=== PATIENT | male | born 1990 | race Caucasian/White ===

== ENCOUNTER 2020-10-16 19:17 | Emergency (ER) | payer OTHER, SELFPAY ==
--- NOTE | 2020-10-16 19:30 | ECG_ITS ---
Test Reason : SYNCOPE Blood Pressure : / mmHG Vent. Rate : 097 BPM Atrial Rate : 097 BPM P-R Int : 144 ms QRS Dur : 088 ms QT Int : 354 ms P-R-T Axes : 041 047 025 degrees QTc Int : 449 ms Sinus rhythm with marked sinus arrhythmia Otherwise normal ECG When compared with ECG of 26-MAR-2020 16:34, No significant change was found Referred By: Leo Stout Electronically Signed By:Brock Beltran
[2020-10-16 19:33] VITALS: BP 145/82; PULSE 140; RESP 18; TEMP 36.1; O2SAT 99; BMI 36.5
--- NOTE | 2020-10-16 19:37 | PC.NURSE ---
pt upon arrival requesting to leave AMA. provider Leo VOSS at bedside with this screen writer RN to explain risks for leaving ama including possible , PE other dangerous risks which could cause his syncopal episode. Pt understands risks and is willing to stay at this time but is still wanting to leave but cooperative at this time.
--- NOTE | 2020-10-16 19:40 | ED_ITS ---
HPI - Syncope General Chief Complaint: Syncope Stated Complaint: SYNCOPAL EPISODE Time Seen by Provider: 10/16/20 19:30 Source: patient Mode of arrival: EMS Limitations: no limitations History of Present Illness HPI narrative: Patient presents to ED for syncopal episode. Patient was informed he passed out at work. Patient was unaware he passed out. Patient presently states he does feel thirsty and would like to leave against medical advice. Patient denies ever having chest pain, headache, shortness of breath, abdominal pain, or dizziness before passing out. Related Data Allergies Allergy/AdvReac Type Severity Reaction Status Date / Time No Known Allergies Allergy Unverified 07/18/20 18:48 [No Known Allergies*] Review of Systems Review of Systems: Yes all other systems are reviewed and are negative Constitutional: Constitutional: Reports as per HPI and Reports no additional constitutional complaints Eyes: Eyes: Reports as per HPI and Reports no additional eye complaints ENT: Reports system reviewed and no additional complaints, except as documented and Reports as per HPI Cardiovascular: Cardiovascular: Reports as per HPI and Reports no additional cardiovascular complaints Respiratory: Respiratory: Reports as per HPI and Reports no additional respiratory complaints Gastrointestinal: Gastrointestinal: Reports as per HPI and Reports no additional gastrointestinal complaints Genitourinary: Genitourinary: Reports no additional male genitourinary complaints and Reports as per HPI Musculoskeletal: Musculoskeletal: Reports no additional musculoskeletal complaints and Reports as per HPI Neurologic: Reports system reviewed and no additional complaints, except as documented and Reports as per HPI Psychiatric: Psychiatric: Reports no additional psychiatric complaints and Reports as per HPI PMF Past Medical History Medical History Asthma No known health problems Social History Social History Advance Directives: No Advance Directives Information Provided: Yes Physical Exam Vital Signs: Vital Signs: Last Vital Signs Temp 96.9 F 10/16/20 19:33 Pulse 140 H 10/16/20 19:33 Resp 18 10/16/20 19:33 BP 145/82 H 10/16/20 19:33 Pulse Ox 99 10/16/20 19:33 Body Mass Index 36.5 Const: Other: Diaphoretic General: cooperative, healthy appearing, comfortable, no acute distress, well developed, alert, awake, Physically active and acute distress Orientation/consciousness: patient oriented x3 HENMT: Head: Yes normal to inspection, Yes No palpable skull fracture present, Yes normocephalic, No atraumatic, No Acrocyanosis present, No Hernandez's sign, No contusion, No cranial bruits, No hematoma, No laceration, No occipital foramen tenderness, No palpable skull fracture, No raccoon eyes, No scalp lesion, No scalp tenderness, No Temporal artery tenderness present, No periorbital ecchymosis and No other Eyes: General: appearance normal, both eyes and all related structures Neck: Neck: Yes normal visual inspection, Yes full ROM, Yes no lymphadenopa thy, Yes no meningeal signs, Yes trachea midline, Yes supple and No tender Chest: Chest palpation & inspection: normal inspection of the chest and normal palpation of entire chest wall Resp: Effort & Inspection: normal respiratory effort and able to speak in complete sentences Auscultation: clear to auscultation bilaterally Cardio: Jugular venous distension: no JVD Heart sounds: S1 normal heart sound present and S2 normal heart sound present GI: Inspection: Yes normal to inspection and No abdominal wall ecchymosis Palpation (GI): Soft to palpation, not firm, nontender, no guarding and not rigid : General: No CVA tenderness and Yes no CVA tenderness Back/Spine/Pelvis: Back: no CVA tenderness, No CVA tenderness and No back tenderness Skin: General skin exam: no rashes or lesions noted Neuro: General: patient oriented x3, gait normal, tone normal, no meningeal signs and CN's II-XI intact bilaterally Cranial nerves: Yes CN's II-XII intact bilaterally Extrem: General: Yes normal to inspection Psych: Appearance: grossly normal, well kempt and not disheveled Course Course Course Narrative: Patient presently is refusing medical evaluation. Patient explained risk of , heart attack, PE, dehydration, arrhythmia of the heart, electrolyte deficiency, disability, or altered lifestyle if there is not any evaluation. Patient states presently he will only allow himself to drink water in the ED and have EKG done. Labs ordered in case patient changes mind. Patient wants to sign out against medical advice. Reevaluation(s) Reevaluation #1: Patient signed out against medical advice without any lab evaluation. MDM - Syncope MDM Narrative Medical decision making narrative: Syncope ECG Data Interpretation: Sinus rhythm with marked arrhythmia. Ventricular rate 97. Pr interval 144. Number EKG. Negative STEMI Discharge Plan Discharge Clinical Impression: Syncope Patient Disposition: Left Against Medical Advice Instructions: Syncope (ED) Additional Instructions: Return to ED immediately for any chest pain, shortness of breath, dizziness, headache, abdominal pain, weakness, coughing up blood, fever, chills, or any other concerning symptoms. Please follow-up with the PCP Stand Alone Forms: Against Medical Advice Interventions: ED Discharge Assessment Last Done: 10/16/20 19:58 Discharge Date/Time: 10/16/20 20:01 Print Language: Malaysian
== END 2020-10-16 20:01 | disposition left against medical advice (07) ==
PROVIDERS: Emergency Provider Emergency Medicine
DX: R55 Syncope and collapse (principal)
CPT/HCPCS: 93005; 99283

== ENCOUNTER 2021-05-06 04:36 | Inpatient (IN) | payer OTHER, SELFPAY ==
[2021-05-06] VITALS (12 sets, daily range): BP systolic 114–146; BP diastolic 87–106; PULSE 89–146; RESP 15–24; TEMP 36.3–36.8; O2SAT 96–98; BMI 31.8
--- NOTE | 2021-05-06 04:45 | ECG_ITS ---
Test Reason : SEIZURE Blood Pressure : / mmHG Vent. Rate : 114 BPM Atrial Rate : 114 BPM P-R Int : 136 ms QRS Dur : 088 ms QT Int : 340 ms P-R-T Axes : 038 021 014 degrees QTc Int : 468 ms Sinus tachycardia Otherwise normal ECG When compared with ECG of 16-OCT-2020 19:44, No significant change was found Referred By: Tiara Paul Electronically Signed By:IVANA BEAN
[2021-05-06 05:07] LABS: Basophils Percent Auto 0.4 % (0-2); Eosinophils Percent Auto 0.2 % (0-4); Imm Gran Abs Auto 0.02 X10*3/uL (0.00-0.03); Imm Gran Pct Auto 0.4 % (0.0-0.4); PLT CLUMP 1; SCAN SMEAR FLAG 1
[2021-05-06 05:09] LABS: Hematocrit 42.3 % (42-52); Hemoglobin 15.1 g/dl (14.0-18.0); Lymphocytes Absolute Auto 0.7 X10*3/uL (1.2-4.9); Lymphocytes Percent Auto 15.2 % (20-40); Mean Corpuscular HGB Conc 35.7 g/dl (31.0-36.0); Mean Corpuscular Hemoglobin 31.9 pg (27.0-33.0); Mean Corpuscular Volume 89.4 fL (80-98); Mean Platelet Volume 9.7 fL (9.4-12.4); Monocytes Absolute Auto 0.3 X10*3/uL (0.1-1.2); Monocytes Percent Auto 6.8 % (2-11); Neutrophils Absolute Auto 3.8 X10*3/uL (2.0-8.3); Platelet Count 126 X10*3/uL (160-400); Red Blood Count 4.73 X10*6/uL (4.60-5.80); White Blood Count 4.9 X10*3/uL (4.8-10.8)
[2021-05-06] MEDS: 0.9 % Sodium Chloride 2,000 ML 999 ML IV (05:09)
[2021-05-06 05:10] LABS: MANUAL DIFF FLAG NO
[2021-05-06] MEDS: LORazepam 2 MG/ML VIAL IVPUSH (05:10)
[2021-05-06 05:13] LABS: Prothrombin Time 11.9 SEC (9.9-13.0)
--- NOTE | 2021-05-06 05:13 | PC.NURSE ---
pt states he drinks vodka and rum, he completes a 1.75 l bottle of one of them in 3 days. pt has had seizures in the past and related to drinking withdrawls all 3 times.
[2021-05-06 05:29] LABS: Ethanol < 10 mg/dL
[2021-05-06 05:34] LABS: Alanine Aminotransferase 48 U/L (0-40); Albumin Level 4.3 g/dL (3.5-5.0); Alkaline Phosphatase 104 U/L (39-117); Anion Gap 24 (12-20); Aspartate Amino Transferase 80 U/L (5-37); Bilirubin Total 2.3 mg/dL (0.0-1.0); Blood Urea Nitrogen 8 mg/dL (9-16); Calcium 9.3 mg/dL (8.4-10.2); Carbon Dioxide 23 mmol/L (22-29); Chloride 94 mmol/L (96-108); Creatinine Clr Calc Pharmacy 94.4; Estimated Glomerular Filt Rate > 60; Glucose Random 198 mg/dL (60-115); Potassium 3.1 mmol/L (3.3-5.1); Sodium 138 mmol/L (135-145); Total Protein 6.8 g/dL (6.5-8.0)
[2021-05-06 05:37] LABS: Magnesium 1.2 mg/dL (1.6-2.6)
--- NOTE | 2021-05-06 05:39 | ED.ALCOHOL ---
HPI - Alcohol General Chief Complaint: Seizure Stated Complaint: seizure 05/06 Time Seen by Provider: 05/06/21 04:45 Source: patient Mode of arrival: ambulatory History of Present Illness HPI narrative: 31-year-old male with significant past medical history of alcohol dependency and abuse, consisting of consuming half - 1 L hard alcohol a day. Patient states that he stopped drinking 2 days ago. In addition, he states he does have a diagnosis of seizure disorder since last summer for which he takes Depakote, but endorses that this is intermittent in nature. Otherwise, he denies any acute complaints and specifically denies fevers, chills, shortness of breath, chest pain / palpitations, abdominal discomfort or urinary symptoms. Related Data Allergies Allergy/AdvReac Type Severity Reaction Status Date / Time No Known Allergies Allergy Unverified 07/18/20 18:48 [No Known Allergies*] Review of Systems Review of Systems: Pertinent positives and negatives as stated in HPI 10 point review of systems is otherwise negative. PMFSH Past Medical History Source: nursing notes reviewed Medical History Asthma No known health problems Social History Social History Alcohol intake: current Alcohol intake frequency: 3 or more drinks per day Alcohol type: hard liquor Smoked in Last 30 Days: No Use of substances other than those prescribed or required for medical reasons: Yes Substance Use Type: Marijuana Substance Use Frequency: Occasionally Last Used Substance: Days (ago) Any prior treatment program specific to substance use: No Advance Directives: No Physical Exam Vital Signs: Vital Signs: Last Vital Signs Temp 97.8 F 05/06/21 04:48 Pulse 120 H 05/06/21 04:48 Resp 24 H 05/06/21 04:48 BP 124/90 H 05/06/21 04:48 Pulse Ox 96 05/06/21 04:48 Body Mass Index 31.8 VITAL SIGNS: Reviewed. GENERAL: Well developed, well nourished, in no acute distress. HEAD: Normocephalic/atraumatic EYES: PERRLA, EOMI intact without pain, no nystagmus EARS: Ext canals without abnormality OROPHARYNX: no oral lesions noted, posterior pharynx clear LUNGS: Normal breath sounds. No adventitious sounds or accessory muscle use. SpO2<96> CARDIOVASCULAR: Regular rate and rhythm without noted murmurs ABDOMEN: Soft, non-tender, non-distended with bowel sounds. SKIN: Inspection of the skin reveals no rashes NEUROLOGIC: Alert and oriented x 4. Strength and sensation to light touch were grossly intact x 4 , tremulous. Course Course Course Narrative: 31-year-old male with history and clinical presentation suggestive of alcohol withdrawal seizures, although somewhat confounding with poor compliance with seizure medications as well. Patient provided with IV Ativan on arrival after obtaining CIWA scale-11. On review of laboratory investigations patient found to have some electrolyte derangements which were corrected and this case was discussed with inpatient hospitalist who is agreeable for admission for alcohol detox and will obtain Depakote levels as additional contributing factor. MDM - Alcohol Lab Data Result diagrams: 05/06/21 05:03 05/06/21 05:03 Labs: Lab Results 05/06/21 05/06/21 05/06/21 Range/Units 05:02 05:03 05:03 WBC 4.9 (4.8-10.8) X10*3/uL RBC 4.73 (4.60-5.80) X10*6/uL Hgb 15.1 (14.0-18.0) g/dl Hct 42.3 (42-52) % MCV 89.4 (80-98) fL MCH 31.9 (27.0-33.0) pg MCHC 35.7 (31.0-36.0) g/dl RDW 12.0 (11.0-16.0) % Plt Count 126 L (160-400) X10*3/uL MPV 9.7 (9.4-12.4) fL Immature Gran % (Auto) 0.4 (0.0-0.4) % Neut % (Auto) 77.0 H (45-73) % Lymph % (Auto) 15.2 L (20-40) % [place] % (Auto) 6.8 (2-11) % Eos % (Auto) 0.2 (0-4) % Baso % (Auto) 0.4 (0-2) % Lymph # (Auto) 0.7 L (1.2-4.9) X10*3/uL [place] # (Auto) 0.3 (0.1-1.2) X10*3/uL Eos # (Auto) 0.0 (0.0-0.4) X10*3/uL Baso # (Auto) 0.0 (0.0-0.2) X10*3/uL Abs Immat Gran (auto) 0.02 (0.00-0.03) X10*3/uL Absolute Neuts (auto) 3.8 (2.0-8.3) X10*3/uL Absolute Nucleated RBC 0.000 (0.0-0.012) X10*3/uL Nucleated RBC % (auto) 0.0 (0.0-0.2) /100WBC PT (9.9-13.0) SEC INR (0.9-1.1) Sodium 138 (135-145) mmol/L Potassium 3.1 L (3.3-5.1) mmol/L Chloride 94 L (96-108) mmol/L Carbon Dioxide 23 (22-29) mmol/L Anion Gap 24 H (12-20) BUN 8 L (9-16) mg/dL Creatinine 1.28 (0.5-1.4) mg/dL Estim Creat Clear Calc 94.4 Estimated GFR > 60 Random Glucose 198 H (60-115) mg/dL Calcium 9.3 (8.4-10.2) mg/dL Magnesium (1.6-2.6) mg/dL Total Bilirubin 2.3 H (0.0-1.0) mg/dL AST 80 H (5-37) U/L ALT 48 H (0-40) U/L Alkaline Phosphatase 104 (39-117) U/L Total Protein 6.8 (6.5-8.0) g/dL Albumin 4.3 (3.5-5.0) g/dL Urine Color Urine Appearance Urine pH (5.0-8.0) Ur Specific [place] (1.005-1.025) Urine Protein (NEG-TRACE) MG/DL Urine Glucose (UA) (NEG) MG/DL Urine Ketones (NEG) MG/DL Urine Blood (NEG) Urine Nitrite (NEG) Ur Leukocyte Esterase (NEG) Urine RBC (0) /HPF Urine WBC (0-4) /HPF Ur Squamous Epith Cells /LPF Urine Bacteria /LPF Hyaline Casts /LPF Urine Mucus /LPF Ethyl Alcohol < 10 mg/dL 05/06/21 05/06/21 05/06/21 Range/Units 05:03 05:03 05:45 WBC (4.8-10.8) X10*3/uL RBC (4.60-5.80) X10*6/uL Hgb (14.0-18.0) g/dl Hct (42-52) % MCV (80-98) fL MCH (27.0-33.0) pg MCHC (31.0-36.0) g/dl RDW (11.0-16.0) % Plt Count (160-400) X10*3/uL MPV (9.4-12.4) fL Immature Gran % (Auto) (0.0-0.4) % Neut % (Auto) (45-73) % Lymph % (Auto) (20-40) % [place] % (Auto) (2-11) % Eos % (Auto) (0-4) % Baso % (Auto) (0-2) % Lymph # (Auto) (1.2-4.9) X10*3/uL [place] # (Auto) (0.1-1.2) X10*3/uL Eos # (Auto) (0.0-0.4) X10*3/uL Baso # (Auto) (0.0-0.2) X10*3/uL Abs Immat Gran (auto) (0.00-0.03) X10*3/uL Absolute Neuts (auto) (2.0-8.3) X10*3/uL Absolute Nucleated RBC (0.0-0.012) X10*3/uL Nucleated RBC % (auto) (0.0-0.2) /100WBC PT 11.9 (9.9-13.0) SEC INR 1.0 (0.9-1.1) Sodium (135-145) mmol/L Potassium (3.3-5.1) mmol/L Chloride (96-108) mmol/L Carbon Dioxide (22-29) mmol/L Anion Gap (12-20) BUN (9-16) mg/dL Creatinine (0.5-1.4) mg/dL Estim Creat Clear Calc Estimated GFR Random Glucose (60-115) mg/dL Calcium (8.4-10.2) mg/dL Magnesium 1.2 L* (1.6-2.6) mg/dL Total Bilirubin (0.0-1.0) mg/dL AST (5-37) U/L ALT (0-40) U/L Alkaline Phosphatase (39-117) U/L Total Protein (6.5-8.0) g/dL Albumin (3.5-5.0) g/dL Urine Color DARK YELLOW Urine Appearance CLEAR Urine pH 7.5 (5.0-8.0) Ur Specific [place] 1.015 (1.005-1.025) Urine Protein 1+ H (NEG-TRACE) MG/DL Urine Glucose (UA) NEG (NEG) MG/DL Urine Ketones 15 (NEG) MG/DL Urine Blood NEG (NEG) Urine Nitrite NEG (NEG) Ur Leukocyte Esterase NEG (NEG) Urine RBC 0-2 (0) /HPF Urine WBC 0-2 (0-4) /HPF Ur Squamous Epith Cells NONE /LPF Urine Bacteria NONE /LPF Hyaline Casts 15-29 /LPF Urine Mucus 1+ /LPF Ethyl Alcohol mg/dL Discharge Plan Discharge Clinical Impression: Alcohol withdrawal, Seizure Patient Disposition: Admitted As Inpatient
[2021-05-06 05:50] LABS: Glucose Urine UA NEG (NEG); Leukocyte Esterase Urine NEG (NEG); Nitrite Urine NEG (NEG); PH 7.5 (5.0-8.0); Specific Gravity - Urine 1.015 (1.005-1.025); Urine Blood NEG (NEG); Urine Ketones 15 MG/DL (NEG); Urine Protein 1+ MG/DL (NEG-TRACE)
[2021-05-06 05:58] LABS: Appearance Urine CLEAR; Color Urine DARK YELLOW
[2021-05-06 06:05] LABS: RBC Urine 0-2 /HPF (0); WBC Urine 0-2 /HPF (0-4)
[2021-05-06] MEDS: Magnesium Sulfate/H2O 2 GM/50 ML PIGGYBACK IV (06:05)
[2021-05-06 06:06] LABS: Mucus Urine 1+ /LPF
[2021-05-06 06:24] LABS: Amphetamine Screen Urine Not Detected (Not Detect); Barbiturates, Urine Not Detected (Not Detect); Benzodiazepines Screen Urine Not Detected (Not Detect); Cannabinoid Screen Urine Not Detected (Not Detect); Cocaine Screen Urine Not Detected (Not Detect); Opiate Screen Urine Not Detected (Not Detect); Phencyclidine Screen Urine Not Detected (Not Detect)
[2021-05-06] MEDS: Potassium Chloride/H20 10 MEQ/100 ML PIGGYBACK 100 MEQ IV ×2 (06:37→07:50)
[2021-05-06 06:50] LABS: Valproate < 2.0 mcg/mL (50.0-100.0)
[2021-05-06 07:01] LABS: COVID-19 Test Negative (Negative)
--- NOTE | 2021-05-06 07:13 | PC.NURSE ---
Pt is lying in bed alert and oriented. Family is at bedside. Peripheral iv site wnl.
--- NOTE | 2021-05-06 08:54 | PC.NURSE ---
Pt resting quietly in bed in no distress. Pt requesting something for breakfast. Pt given ice chips at this time.
--- NOTE | 2021-05-06 10:00 | PC.NURSE ---
Patient has tolerated ice chips with no vomiting or complaints of nausea. Gingerale given to drink
--- NOTE | 2021-05-06 11:22 | PC.NURSE ---
Patient tolerated gingerale well with no nausea or vomiting. Pt given a sandwich to eat.
--- NOTE | 2021-05-06 11:58 | PC.NURSE ---
Patient tolerated sandwich well. Pt remains alert, oriented and in no distress.
--- NOTE | 2021-05-06 12:02 | PM.IMHP ---
History of Present Illness Date of Service: 05/06/21 Chief Complaint: Seizure 31 year old man presenting to the ED after a seizure. He was up this morning and felt funny and knew he was going to have a seizure. His sister walked him to the room and he layed on the bed. His seizures are usually tonic clonic in nature however he reports that he has not taken his depakote in one week and tends to not be regular in taking his medication. He also drinks a liter of liquor at least 3-4 times a week with last drink 2 days ago. He reports poor appetite over the last few days. He denied chest pain, shortness of breath, trauma from seizure. In the ED,he was noted to have a number of electrolyte abnormalities including mag of 1.2, potassium of 3.1, tachycardia. In the ED he was given ativan, potassium, magnesium and was started on phenobarbitol. Review of Systems Review of Systems: Denies any recent fever chills or decrease in appetite respiratory denies any shortness of breath coverage production cardiovascular denied chest pain gastrointestinal denies any dysphagia abdominal pain nausea vomiting or diarrhea genitourinary denies any dysuria frequency or hematuria musculoskeletal denies any joint pain or swelling neuropsych denies any weakness or seizures all other systems reviewed are negative [facility] Medical History Asthma No known health problems Pertinent family history: no cardiac disease Social History Household Members: Family Household Members Other:: mother and step father Housing: House Do you presently have visiting nurse or other home services: No Alcohol intake: current Alcohol intake frequency: 3 or more drinks per day Alcohol type: hard liquor Patient Tobacco Use Status: Never used Tobacco Smoked in Last 30 Days: No Use of substances other than those prescribed or required for medical reasons: No Substance Use Type: Marijuana Substance Use Frequency: Occasionally Last Used Substance: Days (ago) Any prior treatment program specific to substance use: No Have you been hit, kicked, punched, or otherwise hurt by someone within the past year? If so, by whom?: No Do you feel safe in your current relationship?: No Is there a partner from a previous relationship who is making you feel unsafe now?: No Are you made to feel afraid or neglected: No Advance Directives: No Do you have thoughts of harming others: None Do you have a plan to hurt others: No Plan Recently lost weight without trying: Yes How much weight loss: 14-23 pounds Eating poorly because of decreased appetite: No Nutrition screen score: 4 Nutrition Risks: No Nutritional Risk Poor oral hygiene: No Meds Allergies Allergy/AdvReac Type Severity Reaction Status Date / Time No Known Allergies Allergy Unverified 07/18/20 18:48 [No Known Allergies*] Active Medications: Current Medications Generic Name Dose Route Start Last Admin Trade Name Freq PRN Reason Stop Dose Admin Acetaminophen 650 mg 05/06/21 11:58 Acetaminophen 325 Mg Tablet PO Q6H PRN Pain, Mild (Pain Scale 1-3) Pharmacy Consult 1 each 05/06/21 11:59 Consult Rx Etoh Phenob Dosing MISCELLANE 05/06/21 12:00 ONCE ONE Protocol Sodium Chloride 3 ml 05/06/21 16:00 0.9 % Sodium Chloride Flush 3 Ml Syringe [facility] [place] Home Medications Medication Instructions Recorded Confirmed Last Taken Type buspirone 1 tab PO DAILY@0630 05/06/21 05/06/21 1 Week Ago History ~04/29/21 1 divalproex 1 tab PO DAILY 05/06/21 05/06/21 Unknown History escitalopram oxalate 1 tab PO DAILY 05/06/21 05/06/21 1 Week Ago History ~04/29/21 1 Physical Exam Vital Signs and Narrative: Vital Signs: Last Vital Signs Temp 98.0 F 05/06/21 08:22 Pulse 111 H 05/06/21 11:00 Resp 18 05/06/21 11:00 BP 146/106 H 05/06/21 11:00 Pulse Ox 97 05/06/21 11:00 Body Mass Index 31.8 Results Labs CBC and Chem 7: 05/06/21 05:03 05/06/21 05:03 Labs: Laboratory Results - last 24 hr 05/06/21 05/06/21 05/06/21 05:02 05:03 05:03 MCV 89.4 MCH 31.9 MCHC 35.7 RDW 12.0 Plt Count 126 L MPV 9.7 Immature Gran % (Auto) 0.4 Neut % (Auto) 77.0 H Lymph % (Auto) 15.2 L [place] % (Auto) 6.8 Eos % (Auto) 0.2 Baso % (Auto) 0.4 Lymph # (Auto) 0.7 L [place] # (Auto) 0.3 Eos # (Auto) 0.0 Baso # (Auto) 0.0 Abs Immat Gran (auto) 0.02 Absolute Neuts (auto) 3.8 Absolute Nucleated RBC 0.000 Nucleated RBC % (auto) 0.0 PT INR Anion Gap 24 H Estim Creat Clear Calc 94.4 Estimated GFR > 60 Random Glucose 198 H Calcium 9.3 Magnesium Total Bilirubin 2.3 H AST 80 H ALT 48 H Alkaline Phosphatase 104 Total Protein 6.8 Albumin 4.3 Urine Color Urine Appearance Urine pH Ur Specific [place] Urine Protein Urine Glucose (UA) Urine Ketones Urine Blood Urine Nitrite Ur Leukocyte Esterase Urine RBC Urine WBC Ur Squamous Epith Cells Urine Bacteria Hyaline Casts Urine Mucus Urine Opiates Screen Ur Barbiturates Screen Valproic Acid Ur Phencyclidine Scrn Ur Amphetamines Screen U Benzodiazepines Scrn Urine Cocaine Screen U Marijuana (THC) Screen Ethyl Alcohol < 10 COVID-19 (CELE) COVID-19 [employer] Com 05/06/21 05/06/21 05/06/21 05:03 05:03 05:45 MCV MCH MCHC RDW Plt Count MPV Immature Gran % (Auto) Neut % (Auto) Lymph % (Auto) [place] % (Auto) Eos % (Auto) Baso % (Auto) Lymph # (Auto) [place] # (Auto) Eos # (Auto) Baso # (Auto) Abs Immat Gran (auto) Absolute Neuts (auto) Absolute Nucleated RBC Nucleated RBC % (auto) PT 11.9 INR 1.0 Anion Gap Estim Creat Clear Calc Estimated GFR Random Glucose Calcium Magnesium 1.2 L* Total Bilirubin AST ALT Alkaline Phosphatase Total Protein Albumin Urine Color DARK YELLOW Urine Appearance CLEAR Urine pH 7.5 Ur Specific [place] 1.015 Urine Protein 1+ H Urine Glucose (UA) NEG Urine Ketones 15 Urine Blood NEG Urine Nitrite NEG Ur Leukocyte Esterase NEG Urine RBC 0-2 Urine WBC 0-2 Ur Squamous Epith Cells NONE Urine Bacteria NONE Hyaline Casts 15-29 Urine Mucus 1+ Urine Opiates Screen Ur Barbiturates Screen Valproic Acid < 2.0 L Ur Phencyclidine Scrn Ur Amphetamines Screen U Benzodiazepines Scrn Urine Cocaine Screen U Marijuana (THC) Screen Ethyl Alcohol COVID-19 (CELE) COVID-19 Clin Com 05/06/21 05/06/21 05:46 06:40 MCV MCH MCHC RDW Plt Count MPV Immature Gran % (Auto) Neut % (Auto) Lymph % (Auto) [place] % (Auto) Eos % (Auto) Baso % (Auto) Lymph # (Auto) [place] # (Auto) Eos # (Auto) Baso # (Auto) Abs Immat Gran (auto) Absolute Neuts (auto) Absolute Nucleated RBC Nucleated RBC % (auto) PT INR Anion Gap Estim Creat Clear Calc Estimated GFR Random Glucose Calcium Magnesium Total Bilirubin AST ALT Alkaline Phosphatase Total Protein Albumin Urine Color Urine Appearance Urine pH Ur Specific [place] Urine Protein Urine Glucose (UA) Urine Ketones Urine Blood Urine Nitrite Ur Leukocyte Esterase Urine RBC Urine WBC Ur Squamous Epith Cells Urine Bacteria Hyaline Casts Urine Mucus Urine Opiates Screen Not Detected Ur Barbiturates Screen Not Detected Valproic Acid Ur Phencyclidine Scrn Not Detected Ur Amphetamines Screen Not Detected U Benzodiazepines Scrn Not Detected Urine Cocaine Screen Not Detected U Marijuana (THC) Screen Not Detected Ethyl Alcohol COVID-19 (CELE) Negative COVID-19 Clin Com See Note Assessment and Plan (1) Alcohol withdrawal: Status: Acute (2) Seizure: Status: Acute 31 year old man admitted after having a seizure at home with hx of heavy alcohol use and seizure. Epilepsy. Not taking his medication as prescribed, last took 1 week ago loading dose of depakote continue depakote seizure precautions Alcohol addiction/withdrawl. Last drink 2 days ago tachycardia IV fluids Thiamine, folic acid and MVI Phenobarb protocol Addiction consult Hypokalemia repleted trend Hypomagnesemia repleted trend Transaminitis . secondary to alcohol use. trend INR 1.0 DVT prophylaxis with lovenox Attending Dr. Garces Full code Quality Stroke Does the patient have a stroke diagnosis?: No VTE Prior VTE?: No VTE Risk Level:: Medical - low VTE Device Contraindication: Treatment Not Indicated VTE Drug Contraindication: N/A - Med Ordered
[2021-05-06] MEDS: Divalproex Sodium ER 500 MG TAB.ER.24H 1000 MG PO (12:13)
--- NOTE | 2021-05-06 13:02 | PM.EVENT ---
Event Note Date of Service: 05/06/21 Event Note: Attending Admission Note: In brief, this is a 31 yo M with a PMH of seizure disorder and alcohol abuse with dependence. (unclear if his seizures started prior to his heavy alcohol use or not). Presents to the hospital with suspected alcohol withdrawal seizures vs secondary to non-compliance with his medications. He is unsure if he has seen a nuerologist in the past and not sure who started him on depakote. Upon arrival to the ED, clearly in alcohol withdrawal and treated with IVF and ativan. Withdrawal symptoms persists, so he will be admitted. Will start him on phenobarb per protocol. He is interested in talking with the CARE/Addiction medicine team for help with his alcohol dependence. Attending Attestation: Patient seen and examined independently and I was present during pyle portion of E/M service. Agree with Mayuri De Paz NP's history, physical, assessment, and plan.
--- NOTE | 2021-05-06 13:15 | PC.NURSE ---
Patient is sitting up in bed eating lunch. Pt denies any pain or nausea. Pt also denies any itching or pain.
--- NOTE | 2021-05-06 13:42 | PC.NURSE ---
Patient is alert and oriented. No acute distress. Report called to ORLANDO Manzano on [facility]. Pt to be moved to room [id number]
[2021-05-06] MEDS: PHENobarbitaL sodium 130 MG/ML VIAL 274 MG IM (14:31)
[2021-05-06] MEDS: Enoxaparin Sodium 40 MG/0.4 ML SYRINGE SUBCUT (15:35)
[2021-05-06] MEDS: 0.9 % Sodium Chloride 1,000 ML 125 ML IVCONT ×2 (15:36→23:33)
[2021-05-06] MEDS: PHENobarbitaL sodium 130 MG/ML VIAL 205 MG IM ×2 (17:20→20:48)
[2021-05-07 03:35] VITALS: BP 139/82; PULSE 83; RESP 18; TEMP 36.6; O2SAT 98
[2021-05-07] MEDS: 0.9 % Sodium Chloride 1,000 ML 125 ML IVCONT ×3 (06:24→22:14)
[2021-05-07 06:32] LABS: MANUAL DIFF FLAG NO
[2021-05-07 06:48] LABS: Basophils Percent Auto 0.6 % (0-2); Eosinophils Absolute Auto 0.1 X10*3/uL (0.0-0.4); Eosinophils Percent Auto 1.5 % (0-4); Hematocrit 35.2 % (42-52); Hemoglobin 12.5 g/dl (14.0-18.0); Imm Gran Abs Auto 0.02 X10*3/uL (0.00-0.03); Imm Gran Pct Auto 0.6 % (0.0-0.4); Lymphocytes Absolute Auto 1.2 X10*3/uL (1.2-4.9); Lymphocytes Percent Auto 34.6 % (20-40); Mean Corpuscular HGB Conc 35.5 g/dl (31.0-36.0); Mean Corpuscular Hemoglobin 32.3 pg (27.0-33.0); Mean Platelet Volume 11.2 fL (9.4-12.4); Monocytes Absolute Auto 0.3 X10*3/uL (0.1-1.2); Monocytes Percent Auto 8.1 % (2-11); Neutrophils Absolute Auto 1.8 X10*3/uL (2.0-8.3); Neutrophils Percent Auto 54.6 % (45-73); Red Blood Count 3.87 X10*6/uL (4.60-5.80); Red Cell Distribution Width 12.4 % (11.0-16.0); White Blood Count 3.4 X10*3/uL (4.8-10.8)
[2021-05-07 07:00] VITALS: BP 148/105; PULSE 92; RESP 18; TEMP 36.3; O2SAT 100
[2021-05-07 07:16] LABS: Anion Gap 14 (12-20); Blood Urea Nitrogen 5 mg/dL (9-16); Carbon Dioxide 25 mmol/L (22-29); Chloride 107 mmol/L (96-108); Estimated Glomerular Filt Rate > 60; Potassium 3.6 mmol/L (3.3-5.1); Sodium 142 mmol/L (135-145)
[2021-05-07 07:31] LABS: Magnesium 1.7 mg/dL (1.6-2.6)
[2021-05-07] MEDS: Multivitamin TABLET 1 TAB PO (07:39)
[2021-05-07] MEDS: Divalproex Sodium ER 500 MG TAB.ER.24H PO (07:39)
[2021-05-07] MEDS: Thiamine HCL 100 MG TABLET PO (07:39)
[2021-05-07] MEDS: Folic Acid 1 MG TABLET PO (07:39)
[2021-05-07] MEDS: 0.9 % Sodium Chloride Flush 3 ML SYRINGE IVFLUSH ×2 (07:39→15:54)
[2021-05-07] MEDS: PHENobarbitaL 15 MG TABLET 45 MG PO ×2 (07:39→20:51)
[2021-05-07 07:40] LABS: Calcium 8.1 mg/dL (8.4-10.2); Glucose Random 91 mg/dL (60-115)
[2021-05-07 07:55] LABS: Platelet Count 94 X10*3/uL (160-400)
[2021-05-07 09:20] LABS: Alanine Aminotransferase 37 U/L (0-40); Albumin Level 3.4 g/dL (3.5-5.0); Alkaline Phosphatase 80 U/L (39-117); Aspartate Amino Transferase 75 U/L (5-37); Bilirubin Direct 0.6 mg/dL (0.0-0.5); Bilirubin Total 1.5 mg/dL (0.0-1.0); Total Protein 5.4 g/dL (6.5-8.0)
[2021-05-07 10:07] VITALS: BMI 31.8
[2021-05-07 11:07] VITALS: BP 148/90; PULSE 126; RESP 18; TEMP 36; O2SAT 98
--- NOTE | 2021-05-07 11:57 | MHC.CM.PN ---
CM MET WITH PT WHO REPORTS HE LIVES WITH HIS FAMILY OF ORIGIN AND IS INDEPENDENT WITH ALL CARE. 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 PT REPORTS HIS PCP IS YUNIER BONILLA HOWEVER HE IS HOPING TO CHANGE [place] [facility] [place] C[place]. A LIST OF [facility] WAS PROVIDED. PT DOES NOT HAVE A HCP AND DID NOT WANT TO COMPLETE ONE TODAY HOWEVER HE DID TAKE THE INFORMATION AND A BLANK DOCUMENT TO COMPLETE ONCE HE HAS DISCUSSED IT WITH HIS FAMILY. PT REPORTS HE HAS A CPAP AT HOME THAT IS NOT WORKING PROPERLY HOWEVER HE HAS ALREADY RESEARCHED STEPS TO GETTING IT FIXED AND IS JUST WAITING FOR HIS MOTHER TO BE ABLE TO DRIVE HIM TO [facility] SO HE CAN BRING THE MACHINE IN FOR REPAIR. CURRENT DC PLAN IS HOME WITH NO SERVICES PT REPORTS HIS BROTHER MAY BE ABLE TO PICK HIM UP AT DC OTHERWISE HE WOULD WALK. CM ALSO INFORMED HIM OF POSSIBLE OPTION TO TAKE [facility]TLE HOME.
--- NOTE | 2021-05-07 14:20 | PM.IMPN ---
Subjective Subjective Date of Service: 05/07/21 Interval History: Follow up alcohol addiction, jazmin doing better today appetite is great still tachy Physical Exam Vital Signs: Vital Signs: Last Vital Signs Temp 96.8 F 05/07/21 11:07 Pulse 126 H 05/07/21 11:07 Resp 18 05/07/21 11:07 BP 148/90 H 05/07/21 11:07 Pulse Ox 98 05/07/21 11:07 Body Mass Index 31.8 Appearing in no acute distress lung sounds are clear to auscultation heart regular rate rhythm, clear S1, S2 positive bowel sounds, abdomen is soft, nontender neuro patient is alert x3, no focal deficits Objective Data Current Medications Generic Name Dose Route Start Last Admin Trade Name Freq PRN Reason Stop Dose Admin Acetaminophen 650 mg 05/06/21 11:58 Acetaminophen 325 Mg Tablet PO Q6H PRN Pain, Mild (Pain Scale 1-3) Divalproex Sodium 500 mg 05/07/21 09:00 05/07/21 07:39 Divalproex Sodium Er 500 Mg Tab.Er.24h PO 500 mg DAILY ROSS Administration Enoxaparin Sodium 40 mg 05/06/21 15:15 05/06/21 15:35 Enoxaparin Sodium 40 Mg/0.4 Ml Syringe SUBCUT 40 mg Q24H ROSS Administration Folic Acid 1 mg 05/07/21 09:00 05/07/21 07:39 Folic Acid 1 Mg Tablet PO 1 mg DAILY ROSS Administration Sodium Chloride 1,000 mls @ 125 mls/hr 05/06/21 15:15 05/07/21 06:24 Ns IVCONT 125 mls/hr .Q8H ROSS Administration Medication 1 each 05/06/21 12:19 No Benzodiazepines MISCELLANE DAILY ROSS Multivitamins/Vitamin C 1 tab 05/07/21 09:00 05/07/21 07:39 Multivitamin Tablet PO 1 tab DAILY ROSS Administration Phenobarbital 45 mg 05/07/21 09:00 05/07/21 07:39 Phenobarbital 15 Mg Tablet PO 05/08/21 21:01 45 mg BID ROSS Administration Protocol Phenobarbital 30 mg 05/09/21 09:00 Phenobarbital 30 Mg Tablet PO 05/10/21 21:01 BID ROSS Protocol Phenobarbital 30 mg 05/11/21 09:00 Phenobarbital 30 Mg Tablet PO 05/12/21 09:01 DAILY ROSS Protocol Sodium Chloride 3 ml 05/06/21 16:00 05/07/21 07:39 0.9 % Sodium Chloride Flush 3 Ml Syringe IVFLUSH 3 ml QSHIFT ROSS Administration Thiamine HCl 100 mg 05/07/21 09:00 05/07/21 07:39 Thiamine Hcl 100 Mg Tablet PO 100 mg DAILY ROSS Administration Labs CBC & Chem 7: 05/07/21 05:23 05/07/21 05:23 Labs: Laboratory Results - last 24 hr 05/07/21 05/07/21 05/07/21 05:23 05:23 05:23 MCV 91.0 MCH 32.3 MCHC 35.5 RDW 12.4 Plt Count 94 L D MPV 11.2 Immature Gran % (Auto) 0.6 H Neut % (Auto) 54.6 Lymph % (Auto) 34.6 [place] % (Auto) 8.1 Eos % (Auto) 1.5 Baso % (Auto) 0.6 Lymph # (Auto) 1.2 [place] # (Auto) 0.3 Eos # (Auto) 0.1 Baso # (Auto) 0.0 Abs Immat Gran (auto) 0.02 Absolute Neuts (auto) 1.8 L Absolute Nucleated RBC 0.000 Nucleated RBC % (auto) 0.0 Anion Gap 14 Estim Creat Clear Calc 159.0 Estimated GFR > 60 Random Glucose 91 D Calcium 8.1 L D Magnesium 1.7 Total Bilirubin 1.5 H Direct Bilirubin 0.6 H AST 75 H ALT 37 Alkaline Phosphatase 80 D Total Protein 5.4 L D Albumin 3.4 L D Progress Note: A&P (1) Seizure: Status: Acute (2) Alcohol withdrawal: Status: Acute Assessment and Plan: 31 year old man admitted after having a seizure at home with hx of heavy alcohol use and seizure. Epilepsy. Not taking his medication as prescribed, last took 1 week ago loading dose of depakote continue depakote home dose seizure precautions Alcohol addiction/withdrawl. Last drink 2 days ago tachycardia IV fluids Thiamine, folic acid and MVI Phenobarb protocol Addiction consult Hypokalemia repleted trend Hypomagnesemia repleted trend Transaminitis . secondary to alcohol use. trend INR 1.0 DISPO still tachy today, possible dc tomorrow if medically stable DVT prophylaxis with lovenox Attending Dr. Garces Full code Quality Stroke Does the patient have a stroke diagnosis?: No VTE Prior VTE?: No VTE Risk Level:: Medical - low VTE Device Contraindication: Treatment Not Indicated VTE Drug Contraindication: N/A - Med Ordered
[2021-05-07 15:14] VITALS: BP 134/95; PULSE 88; RESP 20; TEMP 36.1; O2SAT 98
[2021-05-07] MEDS: Enoxaparin Sodium 40 MG/0.4 ML SYRINGE SUBCUT (15:51)
--- NOTE | 2021-05-07 15:51 | HO.ADDICTCON ---
History of Present Illness Date of Service: 05/07/2021 Chief Complaint: ETOH Seizure Reason for Consult: AUD Requesting physician: Juan Garces Discussed with referring provider: No Sources of Information: patient interviewed and chart reviewed HPI Narrative: Patient is a 31-year-old male currently medically admitted with alcohol withdrawal. Consult requested as patient expressed interest in medications for alcohol use disorder. Patient seen in room 452, he was awake, alert, pleasant and engaged in interview. Discussed substance use history which includes only alcohol. Patient reports that he began drinking alcohol approximately 8 years ago, and became an issue approximately 5 years ago. He states that he regularly drinks about a L and a half of vodka every 2-3 days. He denies any history of treatment. Identify a his current health issues and issues in his relationship as motivation for treatment. He identifies family and friends as his main supports. he is not currently engaged in any behavioral health treatment, though he does voice interest in connecting to the services. Denies any history of illicit substance use. Does endorse family history of alcohol use disorder ( both of his parents). Past Psychiatric History: Not currently engaged in services Medical Evaluation Reviewed: Yes Personal & Social History: lives with his mother and her Review of Systems Review of Systems denies any withdrawal symptoms. Some anxiety related to starting treatment for alcohol use disorder Diagnostics Vital Signs (24Hr): Vital Signs - 24 hr 05/06/21 18:06 05/06/21 19:19 05/06/21 20:45 Temperature 97.8 F Pulse Rate 117 H 118 H 103 H Respiratory Rate 18 Blood Pressure 114/94 H 140/88 H Pulse Oximetry 97 05/06/21 23:32 05/07/21 03:35 05/07/21 07:00 Temperature 97.8 F 97.3 F Pulse Rate 100 83 92 Respiratory Rate 18 18 18 Blood Pressure 143/95 H 139/82 148/105 H Pulse Oximetry 98 98 100 05/07/21 11:07 05/07/21 15:14 Temperature 96.8 F 97.0 F Pulse Rate 126 H 88 Respiratory Rate 18 20 Blood Pressure 148/90 H 134/95 H Pulse Oximetry 98 98 Body Mass Index 31.8 Labs Results: 05/07/21 05:23 05/07/21 05:23 Labs: Laboratory Results - last 48 hr 05/06/21 05/06/21 05/06/21 05:02 05:03 05:03 WBC 4.9 RBC 4.73 Hgb 15.1 Hct 42.3 MCV 89.4 MCH 31.9 MCHC 35.7 RDW 12.0 Plt Count 126 L MPV 9.7 Immature Gran % (Auto) 0.4 Neut % (Auto) 77.0 H Lymph % (Auto) 15.2 L [place] % (Auto) 6.8 Eos % (Auto) 0.2 Baso % (Auto) 0.4 Lymph # (Auto) 0.7 L [place] # (Auto) 0.3 Eos # (Auto) 0.0 Baso # (Auto) 0.0 Abs Immat Gran (auto) 0.02 Absolute Neuts (auto) 3.8 Absolute Nucleated RBC 0.000 Nucleated RBC % (auto) 0.0 PT INR Sodium 138 Potassium 3.1 L Chloride 94 L Carbon Dioxide 23 Anion Gap 24 H BUN 8 L Creatinine 1.28 Estim Creat Clear Calc 94.4 Estimated GFR > 60 Random Glucose 198 H Calcium 9.3 Magnesium Total Bilirubin 2.3 H Direct Bilirubin AST 80 H ALT 48 H Alkaline Phosphatase 104 Total Protein 6.8 Albumin 4.3 Urine Color Urine Appearance Urine pH Ur Specific [place] Urine Protein Urine Glucose (UA) Urine Ketones Urine Blood Urine Nitrite Ur Leukocyte Esterase Urine RBC Urine WBC Ur Squamous Epith Cells Urine Bacteria Hyaline Casts Urine Mucus Urine Opiates Screen Ur Barbiturates Screen Valproic Acid Ur Phencyclidine Scrn Ur Amphetamines Screen U Benzodiazepines Scrn Urine Cocaine Screen U Marijuana (THC) Screen Ethyl Alcohol < 10 COVID-19 (CELE) COVID-19 Clin Com 05/06/21 05/06/21 05/06/21 05:03 05:03 05:45 WBC RBC Hgb Hct MCV MCH MCHC RDW Plt Count MPV Immature Gran % (Auto) Neut % (Auto) Lymph % (Auto) [place] % (Auto) Eos % (Auto) Baso % (Auto) Lymph # (Auto) [place] # (Auto) Eos # (Auto) Baso # (Auto) Abs Immat Gran (auto) Absolute Neuts (auto) Absolute Nucleated RBC Nucleated RBC % (auto) PT 11.9 INR 1.0 Sodium Potassium Chloride Carbon Dioxide Anion Gap BUN Creatinine Estim Creat Clear Calc Estimated GFR Random Glucose Calcium Magnesium 1.2 L* Total Bilirubin Direct Bilirubin AST ALT Alkaline Phosphatase Total Protein Albumin Urine Color DARK YELLOW Urine Appearance CLEAR Urine pH 7.5 Ur Specific [place] 1.015 Urine Protein 1+ H Urine Glucose (UA) NEG Urine Ketones 15 Urine Blood NEG Urine Nitrite NEG Ur Leukocyte Esterase NEG Urine RBC 0-2 Urine WBC 0-2 Ur Squamous Epith Cells NONE Urine Bacteria NONE Hyaline Casts 15-29 Urine Mucus 1+ Urine Opiates Screen Ur Barbiturates Screen Valproic Acid < 2.0 L Ur Phencyclidine Scrn Ur Amphetamines Screen U Benzodiazepines Scrn Urine Cocaine Screen U Marijuana (THC) Screen Ethyl Alcohol COVID-19 (CELE) COVID-19 Clin Com 05/06/21 05/06/21 05/07/21 05:46 06:40 05:23 WBC 3.4 L RBC 3.87 L Hgb 12.5 L Hct 35.2 L MCV 91.0 MCH 32.3 MCHC 35.5 RDW 12.4 Plt Count 94 L D MPV 11.2 Immature Gran % (Auto) 0.6 H Neut % (Auto) 54.6 Lymph % (Auto) 34.6 [place] % (Auto) 8.1 Eos % (Auto) 1.5 Baso % (Auto) 0.6 Lymph # (Auto) 1.2 [place] # (Auto) 0.3 Eos # (Auto) 0.1 Baso # (Auto) 0.0 Abs Immat Gran (auto) 0.02 Absolute Neuts (auto) 1.8 L Absolute Nucleated RBC 0.000 Nucleated RBC % (auto) 0.0 PT INR Sodium Potassium Chloride Carbon Dioxide Anion Gap BUN Creatinine Estim Creat Clear Calc Estimated GFR Random Glucose Calcium Magnesium Total Bilirubin Direct Bilirubin AST ALT Alkaline Phosphatase Total Protein Albumin Urine Color Urine Appearance Urine pH Ur Specific [place] Urine Protein Urine Glucose (UA) Urine Ketones Urine Blood Urine Nitrite Ur Leukocyte Esterase Urine RBC Urine WBC Ur Squamous Epith Cells Urine Bacteria Hyaline Casts Urine Mucus Urine Opiates Screen Not Detected Ur Barbiturates Screen Not Detected Valproic Acid Ur Phencyclidine Scrn Not Detected Ur Amphetamines Screen Not Detected U Benzodiazepines Scrn Not Detected Urine Cocaine Screen Not Detected U Marijuana (THC) Screen Not Detected Ethyl Alcohol COVID-19 (CELE) Negative COVID-19 Clin Com See Note 05/07/21 05/07/21 05:23 05:23 WBC RBC Hgb Hct MCV MCH MCHC RDW Plt Count MPV Immature Gran % (Auto) Neut % (Auto) Lymph % (Auto) [place] % (Auto) Eos % (Auto) Baso % (Auto) Lymph # (Auto) [place] # (Auto) Eos # (Auto) Baso # (Auto) Abs Immat Gran (auto) Absolute Neuts (auto) Absolute Nucleated RBC Nucleated RBC % (auto) PT INR Sodium 142 Potassium 3.6 Chloride 107 Carbon Dioxide 25 Anion Gap 14 BUN 5 L Creatinine 0.76 Estim Creat Clear Calc 159.0 Estimated GFR > 60 Random Glucose 91 D Calcium 8.1 L D Magnesium 1.7 Total Bilirubin 1.5 H Direct Bilirubin 0.6 H AST 75 H ALT 37 Alkaline Phosphatase 80 D Total Protein 5.4 L D Albumin 3.4 L D Urine Color Urine Appearance Urine pH Ur Specific [place] Urine Protein Urine Glucose (UA) Urine Ketones Urine Blood Urine Nitrite Ur Leukocyte Esterase Urine RBC Urine WBC Ur Squamous Epith Cells Urine Bacteria Hyaline Casts Urine Mucus Urine Opiates Screen Ur Barbiturates Screen Valproic Acid Ur Phencyclidine Scrn Ur Amphetamines Screen U Benzodiazepines Scrn Urine Cocaine Screen U Marijuana (THC) Screen Ethyl Alcohol COVID-19 (CELE) COVID-19 Clin Com Mental Status Exam Mental Status Exam Patient Appearance: Appropriate Level of Consciousness: Awake, Appropriate and Alert Patient Behavior: Appropriate Mood Description: Appropriate Affect Description: Appropriate Patient Cognition Impaired: No Ability to Follow Directions: Excellent Speech Pattern: Clear Thought Process: Goal Oriented Thought Content: positive for Intact Judgement: Good Medications Medications Current Medications Generic Name Dose Route Start Last Admin Trade Name Freq PRN Reason Stop Dose Admin Acetaminophen 650 mg 05/06/21 11:58 Acetaminophen 325 Mg Tablet PO Q6H PRN Pain, Mild (Pain Scale 1-3) Divalproex Sodium 500 mg 05/07/21 09:00 05/07/21 07:39 Divalproex Sodium Er 500 Mg Tab.Er.24h PO 500 mg DAILY ROSS Administration Enoxaparin Sodium 40 mg 05/06/21 15:15 05/06/21 15:35 Enoxaparin Sodium 40 Mg/0.4 Ml Syringe SUBCUT 40 mg Q24H ROSS Administration Folic Acid 1 mg 05/07/21 09:00 05/07/21 07:39 Folic Acid 1 Mg Tablet PO 1 mg DAILY ROSS Administration Sodium Chloride 1,000 mls @ 125 mls/hr 05/06/21 15:15 05/07/21 15:22 Ns IVCONT Infused .Q8H ROSS Infusion Medication 1 each 05/06/21 12:19 No Benzodiazepines MISCELLANE DAILY ROSS Multivitamins/Vitamin C 1 tab 05/07/21 09:00 05/07/21 07:39 Multivitamin Tablet PO 1 tab DAILY ROSS Administration Phenobarbital 45 mg 05/07/21 09:00 05/07/21 07:39 Phenobarbital 15 Mg Tablet PO 05/08/21 21:01 45 mg BID ROSS Administration Protocol Phenobarbital 30 mg 05/09/21 09:00 Phenobarbital 30 Mg Tablet PO 05/10/21 21:01 BID ROSS Protocol Phenobarbital 30 mg 05/11/21 09:00 Phenobarbital 30 Mg Tablet PO 05/12/21 09:01 DAILY ROSS Protocol Sodium Chloride 3 ml 05/06/21 16:00 05/07/21 07:39 0.9 % Sodium Chloride Flush 3 Ml Syringe IVFLUSH 3 ml QSHIFT ROSS Administration Thiamine HCl 100 mg 05/07/21 09:00 05/07/21 07:39 Thiamine Hcl 100 Mg Tablet PO 100 mg DAILY ROSS Administration Allergies Allergies Allergy/AdvReac Type Severity Reaction Status Date / Time No Known Allergies Allergy Verified 05/06/21 17:48 [No Known Allergies*] Assessment & Plan Assessment & Plan (1) Alcohol use disorder, severe, dependence: Status: Acute Code(s): F10.20 - Alcohol dependence, uncomplicated Recommendations: discussed medication options for alcohol use disorder. Patient wishing to trial naltrexone p.o.. Discussed goals of treatment, dosing, side effects. Also provided patient with written medication information is well recovery support services specialist to follow up in the morning and provide additional resources including behavioral health as requested by patient intake to be scheduled that the [facility] [place] prior to discharge Greater than 50% of the session was spent on counseling and/or coordination of care PMFSH Past Medical History Medical History Asthma No known health problems Social History Social History Household Members: Family Household Members Other:: mother and step father Housing: House Do you presently have visiting nurse or other home services: No Alcohol intake: current Alcohol intake frequency: 3 or more drinks per day Alcohol type: hard liquor Patient Tobacco Use Status: Never used Tobacco Smoked in Last 30 Days: No Use of substances other than those prescribed or required for medical reasons: No Substance Use Type: Marijuana Substance Use Frequency: Occasionally Last Used Substance: Days (ago) Currently Displaying Signs/Symptoms of Drug Intoxication Withdrawal: No Any prior treatment program specific to substance use: No Have you been hit, kicked, punched, or otherwise hurt by someone within the past year? If so, by whom?: No Do you feel safe in your current relationship?: No Is there a partner from a previous relationship who is making you feel unsafe now?: No Are you made to feel afraid or neglected: No Advance Directives: No Do you have thoughts of harming others: None Do you have a plan to hurt others: No Plan Recently lost weight without trying: Yes How much weight loss: 14-23 pounds Eating poorly because of decreased appetite: No Nutrition screen score: 4 Nutrition Risks: No Nutritional Risk Poor oral hygiene: No service: No Current occupational status: employed
--- NOTE | 2021-05-07 17:32 | PM.DS ---
DS: Providers Provider Date of Service: 05/08/21 <SHANIKA Thomas - Last Filed: 05/08/21 10:34> Date of admission: 05/06/21 11:58 <Kathleen De Paz NP - Last Filed: 05/07/21 17:40> Primary care physician: Segun Pickett MD <Kathleen De Paz NP - Last Filed: 05/07/21 17:40> Consults: 05/07/21 08:31 Addiction Medicine Routine Consulting Provider: Melba Rose Reason for consultation: alcohol abuse and dependence, interested in MAT Consult to Care Team Routine Comment: Reason for consultation: alcohol abuse and dependence <Kathleen De Paz NP - Last Filed: 05/07/21 17:40> DS: Diagnosis Discharge Diagnosis (1) Seizure: Status: Acute <Kathleen De Paz NP - Last Filed: 05/07/21 17:40> (2) Alcohol withdrawal: Status: Acute <Kathleen De Paz NP - Last Filed: 05/07/21 17:40> DS: Medications Discharge Medications Home Medications: Home Medications Medication Instructions Recorded Confirmed buspirone 1 tab PO DAILY@0630 05/06/21 05/06/21 divalproex 1 tab PO DAILY 05/06/21 05/06/21 escitalopram oxalate 1 tab PO DAILY 05/06/21 05/06/21 <Kathleen De Paz NP - Last Filed: 05/07/21 17:40> DS: Summary Hospital Course Hospital Course: 31 year old man presenting to the ED after a seizure. He was up this morning and felt funny and knew he was going to have a seizure. His sister walked him to the room and he layed on the bed. His seizures are usually tonic clonic in nature however he reports that he has not taken his depakote in one week and tends to not be regular in taking his medication. He also drinks a liter of liquor at least 3-4 times a week with last drink 2 days ago. He reports poor appetite over the last few days. He denied chest pain, shortness of breath, trauma from seizure. In the ED,he was noted to have a number of electrolyte abnormalities including mag of 1.2, potassium of 3.1, tachycardia. In the ED he was given ativan, potassium, magnesium and was started on phenobarbitol. Patient with seizure history. Reported he had not taken his medication regularly. Complicating things he drinks 1 L of hard liquor at least 3 to 4 times a week and his last drink was approximately 2 days ago. He reports that he has had a very poor appetite and since he has been here he has actually eaten very well. He did have some episodes of tachycardia secondary to withdrawals. He was treated with phenobarbital, thiamine, folic acid and multivitamin. He received IV fluid hydration, and electrolytes were repleted. Transaminitis secondary to alcohol abuse, normal INR. Patient seen and evaluated by addiction team, he will be set up as an outpatient to follow-up at the [facility]. Patient was encouraged to stay compliant with his seizure medication to avoid seizures and cessation of alcohol use. He did indicate that he was not upfront about his alcohol use when he was initially diagnosed with seizures. He is encouraged to call and schedule follow up appointment with Dr. Glover his neurologist. <Kathleen De Paz NP - Last Filed: 05/07/21 17:40> Time Spent with Patient Time attestation: Total time spent providing and/or coordinating discharge services: <Kathleen De Paz NP - Last Filed: 05/07/21 17:40> Discharge coordination time: Greater than 30 minutes <SHANIKA Thomas - Last Filed: 05/08/21 10:34> Quality: Stroke Does the patient have a stroke diagnosis?: No <SHANIKA Thomas - Last Filed: 05/08/21 10:34> Physical Exam Vital Signs: Vital Signs: Last Vital Signs Temp 97.0 F 05/07/21 15:14 Pulse 88 05/07/21 15:14 Resp 20 05/07/21 15:14 BP 134/95 H 05/07/21 15:14 Pulse Ox 98 05/07/21 15:14 Body Mass Index 31.8 <Kathlene De Paz NP - Last Filed: 05/07/21 17:40> Appearing in no acute distress head is normocephalic atraumatic eyes pupils are PERRLA sclera is anicteric mouth throat mucous membranes are intact and moist neck is supple no lymphadenopathy, no JVD noted lung sounds are clear to auscultation heart regular rate rhythm, clear S1, S2 positive bowel sounds, abdomen is soft, nontender neuro patient is alert x3, no focal deficits <Kathleen De Paz NP - Last Filed: 05/07/21 17:40> Const: Nutritional Appearance: well nourished <SHANIKA Thomas - Last Filed: 05/08/21 10:34> Orientation/consciousness: patient oriented x3 <SHANIKA Thomas - Last Filed: 05/08/21 10:34> HENMT: Head: Yes normocephalic and Yes atraumatic <SHANIKA Thomas - Last Filed: 05/08/21 10:34> Eyes: Sclerae: sclerae normal <SHANIKA Thomas - Last Filed: 05/08/21 10:34> Chest: Chest palpation & inspection: normal inspection of the chest <SHANIKA Tohmas - Last Filed: 05/08/21 10:34> Resp: Effort & Inspection: normal respiratory effort and no respiratory distress <SHANIKA Thomas - Last Filed: 05/08/21 10:34> Cardio: Rate: regular rate <SHANIKA Thomas - Last Filed: 05/08/21 10:34> Rhythm: regular rhythm <SHANIKA Thomas - Last Filed: 05/08/21 10:34> GI: Palpation (GI): Soft to palpation and nontender <SHANIKA Thomas - Last Filed: 05/08/21 10:34> Neuro: General: patient oriented x3 <SHANIKA Thomas - Last Filed: 05/08/21 10:34> Cranial nerves: Yes CN's II-XII intact bilaterally and Yes Bilaterally intact EOM present <SHANIKA Thomas - Last Filed: 05/08/21 10:34> DS: Data Data Completed and Pending Labs on day of discharge: Laboratory Results - last 24 hr 05/07/21 05/07/21 05/07/21 05:23 05:23 05:23 WBC 3.4 L RBC 3.87 L Hgb 12.5 L Hct 35.2 L MCV 91.0 MCH 32.3 MCHC 35.5 RDW 12.4 Plt Count 94 L D MPV 11.2 Immature Gran % (Auto) 0.6 H Neut % (Auto) 54.6 Lymph % (Auto) 34.6 [place] % (Auto) 8.1 Eos % (Auto) 1.5 Baso % (Auto) 0.6 Lymph # (Auto) 1.2 [place] # (Auto) 0.3 Eos # (Auto) 0.1 Baso # (Auto) 0.0 Abs Immat Gran (auto) 0.02 Absolute Neuts (auto) 1.8 L Absolute Nucleated RBC 0.000 Nucleated RBC % (auto) 0.0 Sodium 142 Potassium 3.6 Chloride 107 Carbon Dioxide 25 Anion Gap 14 BUN 5 L Creatinine 0.76 Estim Creat Clear Calc 159.0 Estimated GFR > 60 Random Glucose 91 D Calcium 8.1 L D Magnesium 1.7 Total Bilirubin 1.5 H Direct Bilirubin 0.6 H AST 75 H ALT 37 Alkaline Phosphatase 80 D Total Protein 5.4 L D Albumin 3.4 L D <Kathleen De Paz NP - Last Filed: 05/07/21 17:40> Discharge Plan Discharge Patient Disposition: Home, Self-Care <Kathleen De aPz NP - Last Filed: 05/07/21 17:40> Discharge Diagnosis: seizure alcohol withdrawal <Kathleen De Paz NP - Last Filed: 05/07/21 17:40> seizure alcohol withdrawal <SHANIKA Thomas - Last Filed: 05/08/21 10:34> Referrals: Segun Pickett MD [Primary Care Provider] - 1 Week <Kathleen De Paz NP - Last Filed: 05/07/21 17:40> Discharge Medications: New folic acid 1 mg Tablet 1 mg PO DAILY Qty: 30 RF: 0 thiamine mononitrate (vit B1) 100 mg Tablet 100 mg PO DAILY Qty: 30 RF: 0 multivitamin with folic acid [Tab-A-Edmund] 400 mcg Tablet 1 tab PO DAILY Qty: 30 RF: 0 naltrexone 50 mg tablet 50 mg PO DAILY Qty: 30 RF: 0 Continued buspirone 5 mg tablet 1 tab PO DAILY@0630 RF: 0 divalproex 500 mg tablet extended release 24 hr 1 tab PO DAILY RF: 0 escitalopram oxalate 5 mg tablet 1 tab PO DAILY RF: 0 <Kathleen De Paz NP - Last Filed: 05/07/21 17:40> Discharge Orders: Discharge Order (Routine); Ordered 05/08/21 Ordered By: Luciana Benitez <Kathleen De Paz NP - Last Filed: 05/07/21 17:40> Diet: advance to usual diet <Kathleen De Paz NP - Last Filed: 05/07/21 17:40> advance to usual diet <SHANIKA Thomas - Last Filed: 05/08/21 10:34> Activity on Discharge: As tolerated <Kathleen De Paz NP - Last Filed: 05/07/21 17:40> As tolerated <SHANIKA Thomas - Last Filed: 05/08/21 10:34> Stand Alone Forms: Patient Portal Discharge page <Kathleen De Paz NP - Last Filed: 05/07/21 17:40> Care Plan Goals: cessation of alcohol use no seizures <Kathleen De Paz NP - Last Filed: 05/07/21 17:40> Health Concerns: seizure alcohol withdrawal <Kathleen De Paz NP - Last Filed: 05/07/21 17:40> Plan of Treatment: follow-up with primary care provider as needed take seizure medication exactly as prescribed, do not miss a dose Recommend complete alcohol cessation call to schedule a follow up appointment with neurologist <Kathleen De Paz NP - Last Filed: 05/07/21 17:40> Assessment: see discharge summary <Kathleen De Paz NP - Last Filed: 05/07/21 17:40>
[2021-05-07 19:03] VITALS: BP 133/86; PULSE 105; RESP 15; TEMP 36.2; O2SAT 98
[2021-05-07 23:25] VITALS: BP 129/89; PULSE 73; RESP 18; TEMP 36.3; O2SAT 98
[2021-05-08 04:00] VITALS: BP 131/83; PULSE 89; RESP 18; TEMP 36.8; O2SAT 97
[2021-05-08] MEDS: 0.9 % Sodium Chloride 1,000 ML 125 ML IVCONT (05:31)
[2021-05-08 06:38] LABS: Alanine Aminotransferase 36 U/L (0-40); Albumin Level 3.6 g/dL (3.5-5.0); Alkaline Phosphatase 78 U/L (39-117); Aspartate Amino Transferase 64 U/L (5-37); Bilirubin Direct 0.6 mg/dL (0.0-0.5); Bilirubin Total 1.2 mg/dL (0.0-1.0); Total Protein 5.9 g/dL (6.5-8.0)
[2021-05-08 06:46] LABS: Anion Gap 12 (12-20); Blood Urea Nitrogen 4 mg/dL (9-16); Calcium 8.6 mg/dL (8.4-10.2); Carbon Dioxide 28 mmol/L (22-29); Chloride 107 mmol/L (96-108); Creatinine Clr Calc Pharmacy 167.8; Estimated Glomerular Filt Rate > 60; Glucose Random 87 mg/dL (60-115); Potassium 4.1 mmol/L (3.3-5.1); Sodium 143 mmol/L (135-145)
[2021-05-08 07:40] VITALS: BP 158/102; PULSE 89; RESP 18; TEMP 36.3; O2SAT 98
[2021-05-08] MEDS: PHENobarbitaL 15 MG TABLET 45 MG PO (08:16)
[2021-05-08] MEDS: Thiamine HCL 100 MG TABLET PO (08:17)
[2021-05-08] MEDS: Folic Acid 1 MG TABLET PO (08:18)
[2021-05-08] MEDS: Divalproex Sodium ER 500 MG TAB.ER.24H PO (08:18)
[2021-05-08] MEDS: Multivitamin TABLET 1 TAB PO (08:18)
--- NOTE | 2021-05-08 09:40 | MHC.RECOVSUP ---
Recovery Support note: Patient is a 31 year old Arabic speaking male who presented to [facility] ED due to alcohol withdrawal. Patient was seen by the Addiction Consult Service on the medical floor. Patient will be starting naltrexone for alcohol use disorder. This copy writer followed up with patient to discuss his alcohol use and treatment options. Patient reports he has supportive friends and family who he can reach out to if needed. Patient also reports having access to AA meetings virtually. This copy writer discussed IOP with patient and provided him with information on this resource. Discussed outpatient therapy and provided patient with a list of agencies in the area. Discussed [facility] with patient. Patient is not interested in meeting with a D[employer]er Operator at this time however he was interested in receiving the [facility] flyer. Patient has an intake at the [facility] on 05/13/21 at 1:15PM. This copy writer provided patient with an appointment reminder and information on where the clinic is located. Patient reports no additional questions at this time.
--- NOTE | 2021-05-08 10:24 | MHC.CM.PN ---
PT CLEARED FOR DC HOME TODAY WITH NO SERVICES. PT WILL ATTEMPT TO ARRANGE HIS OWN TRANSPORTATION AND IS AWARE CM CAN ASSIST IF NEEDED.
== END 2021-05-08 11:15 | disposition home or self-care (01) | DRG 53 ==
LOC: HO.ED 06:19 → HO.EDOVER 12:22 → HO.IMC 13:00
PROVIDERS: Admitting Provider Nurse Practitioner Acute Care; Emergency Provider Student in an Organized Health Care Education/Training Program; PCP Internal Medicine; Visit Provider Family Medicine
DX: G40.509 Epileptic seizures related to external causes, not intractable, without status epilepticus (principal); E83.42 Hypomagnesemia; F10.239 Alcohol dependence with withdrawal, unspecified; E87.6 Hypokalemia; G40.909 Epilepsy, unspecified, not intractable, without status epilepticus; Z91.14 Patient's other noncompliance with medication regimen; Z20.822 Contact with and (suspected) exposure to COVID-19; Z79.899 Other long term (current) drug therapy
CPT/HCPCS: 36415; 80048; 80053; 80076; 80164; 80307; 81001; 82077; 83735; 85025; 85610; 87635; 93005; 99285; J1650; J2060; J2560; J3475

== ENCOUNTER → 2021-05-13 13:17 | Outpatient (BNVA) | payer OTHER, SELFPAY | PROVIDERS: PCP Internal Medicine; Visit Provider Internal Medicine ==

== ENCOUNTER → 2021-06-03 10:33 | Outpatient (BNVA) | payer OTHER, SELFPAY | PROVIDERS: PCP Internal Medicine; Visit Provider Internal Medicine ==

== ENCOUNTER 2021-07-30 07:54 | Outpatient (RCR) | payer MEDICAID, SELFPAY | END 2021-07-31 08:07 | disposition home or self-care (01) | LOC: HO.PHPA 07:54 | PROVIDERS: PCP Internal Medicine; Visit Provider Psychiatry & Neurology Psychiatry | DX: Z13.89 Encounter for screening for other disorder (principal) ==

== ENCOUNTER → 2021-08-25 13:50 | Outpatient (BNVA) | payer MEDICAID, SELFPAY | PROVIDERS: Visit Provider Internal Medicine | DX: F10.20 Alcohol dependence, uncomplicated (principal) | CPT/HCPCS: 80305; 96372 ==

== ENCOUNTER 2021-11-12 11:00 | Outpatient (REF) | payer MEDICAID, SELFPAY | END 2021-11-12 11:01 | disposition home or self-care (01) | LOC: HO.LAB 11:00 | PROVIDERS: Visit Provider Internal Medicine | DX: Z13.89 Encounter for screening for other disorder (principal) ==

== ENCOUNTER → 2021-11-24 13:03 | Outpatient (BNVA) | payer MEDICAID, SELFPAY | PROVIDERS: Visit Provider Internal Medicine | DX: Z51.81 Encounter for therapeutic drug level monitoring (principal); F10.20 Alcohol dependence, uncomplicated | CPT/HCPCS: 80305; 96372; 99212; J2315 ==

== ENCOUNTER → 2021-12-23 12:55 | Outpatient (BNVA) | payer MEDICAID, SELFPAY | PROVIDERS: Visit Provider Internal Medicine | DX: F10.20 Alcohol dependence, uncomplicated (principal); Z51.81 Encounter for therapeutic drug level monitoring; Z79.899 Other long term (current) drug therapy | CPT/HCPCS: 80305; 96372; 99212; J2315 ==

== ENCOUNTER → 2022-01-23 11:33 | Outpatient (BNVA) | payer MEDICAID, SELFPAY | PROVIDERS: Visit Provider Internal Medicine | DX: Z51.81 Encounter for therapeutic drug level monitoring (principal); F10.20 Alcohol dependence, uncomplicated | CPT/HCPCS: 80305; 96372; 99212; J2315 ==

== ENCOUNTER → 2022-02-25 14:40 | Outpatient (BNVA) | payer MEDICAID, SELFPAY | PROVIDERS: Visit Provider Internal Medicine | DX: Z51.81 Encounter for therapeutic drug level monitoring (principal); F11.20 Opioid dependence, uncomplicated | CPT/HCPCS: 80305; 96372; 99212; J2315 ==

== ENCOUNTER 2022-03-13 18:36 | Emergency (ER) | payer MEDICAID, SELFPAY ==
[2022-03-13 18:39] VITALS: BP 136/85; PULSE 115; RESP 19; TEMP 36.6; O2SAT 96; BMI 36.5
== END 2022-03-13 20:21 | disposition left against medical advice (07) ==
LOC: HO.ED 20:11
PROVIDERS: Emergency Provider Emergency Medicine
DX: S61.219A Laceration without foreign body of unspecified finger without damage to nail, initial encounter (principal); X58.XXXA Exposure to other specified factors, initial encounter; Y93.9 Activity, unspecified; Y92.9 Unspecified place or not applicable; Y99.9 Unspecified external cause status

== ENCOUNTER → 2022-03-25 14:54 | Outpatient (BNVA) | payer MEDICAID, SELFPAY | PROVIDERS: Visit Provider Internal Medicine | DX: Z51.81 Encounter for therapeutic drug level monitoring (principal); F10.20 Alcohol dependence, uncomplicated | CPT/HCPCS: 80305; 96372; 99212; J2315 ==

== ENCOUNTER 2022-05-27 21:06 | Emergency (ER) | payer MEDICAID, SELFPAY ==
--- NOTE | 2022-05-27 | ECG_ITS ---
Test Reason : WITHDRAWAL Blood Pressure : / mmHG Vent. Rate : 122 BPM Atrial Rate : 122 BPM P-R Int : 144 ms QRS Dur : 080 ms QT Int : 322 ms P-R-T Axes : 045 050 020 degrees QTc Int : 458 ms Sinus tachycardia Otherwise normal ECG When compared with ECG of 06-MAY-2021 04:56, No significant change was found Referred By: Generic ED Physician Electronically Signed By:IVANA BEAN
--- NOTE | 2022-05-27 | ECG_ITS ---
Test Reason : ETOH Blood Pressure : / mmHG Vent. Rate : 107 BPM Atrial Rate : 107 BPM P-R Int : 146 ms QRS Dur : 082 ms QT Int : 340 ms P-R-T Axes : 039 045 013 degrees QTc Int : 453 ms Sinus tachycardia Otherwise normal ECG When compared with ECG of 27-MAY-2022 22:39, No significant change was found Referred By: Saúl Mccoy Electronically Signed By:IVANA BEAN
[2022-05-27 22:24] VITALS: BP 145/88; PULSE 133; RESP 18; TEMP 36.8; O2SAT 97; BMI 38.0
[2022-05-27 22:39] LABS: MANUAL DIFF FLAG NO
[2022-05-27 22:56] LABS: Basophils Percent Auto 0.4 % (0-2); Eosinophils Percent Auto 0.1 % (0-4); Hematocrit 47.2 % (42.0-52.0); Imm Gran Abs Auto 0.02 X10*3/uL (0.00-0.03); Imm Gran Pct Auto 0.2 % (0.0-0.4); Lymphocytes Percent Auto 12.3 % (20-40); Mean Corpuscular HGB Conc 33.9 g/dl (31.0-36.0); Mean Corpuscular Volume 88.6 fL (80.0-98.0); Mean Platelet Volume 9.4 fL (9.4-12.4); Monocytes Absolute Auto 0.2 X10*3/uL (0.1-1.2); Monocytes Percent Auto 2.5 % (2-11); Neutrophils Absolute Auto 6.8 x10*3/uL (2.0-8.3); Neutrophils Percent Auto 84.5 % (45-73); Platelet Count 190 X10*3/uL (160-400); Red Blood Count 5.33 X10*6/uL (4.60-5.80); Red Cell Distribution Width 14.4 % (11.0-16.0)
[2022-05-27 23:04] LABS: Alanine Aminotransferase 41 U/L (0-40); Alkaline Phosphatase 89 U/L (39-117); Anion Gap 29 (12-20); Aspartate Amino Transferase 80 U/L (5-37); Bilirubin Direct 0.3 mg/dL (0.0-0.5); Bilirubin Total 0.5 mg/dL (0.0-1.0); Blood Urea Nitrogen 13 mg/dL (9-16); Calcium 8.7 mg/dL (8.4-10.2); Carbon Dioxide 16 mmol/L (22-29); Chloride 97 mmol/L (96-108); Creatinine Clr Calc Pharmacy 113.7; Estimated Glomerular Filt Rate > 60; Ethanol 206 mg/dL; Glucose Random 89 mg/dL (60-115); Lipase 26 U/L (8-78); Potassium 4.9 mmol/L (3.3-5.1); Sodium 137 mmol/L (135-145)
--- NOTE | 2022-05-27 23:49 | ED.ALCOHOL ---
HPI - Alcohol General Chief Complaint: ETOH/Substance Use Stated Complaint: Vomiting Time Seen by Provider: 05/27/22 23:31 Source: patient Mode of arrival: ambulatory Limitations: no limitations History of Present Illness HPI narrative: 32-year-old male who presents emergency department for evaluation of will use disorder, abdominal pain and vomiting. The patient states that he had 2 periods of sobriety lasting approximately 3 months each. His 1st period of sobriety started in November of 2021 after he was in a rehab program and was stir. He states then his dog in January of 2022 and this caused him to relapse and started drinking again. He then participated in daily zoom meetings and again had a 3 month period of sobriety until 2 days prior when he began drinking again. He does not identify a specific trigger. He states that he has been drinking large quantities of vodka but cannot quantify the amount. States that he drink alcohol until 03:00 hours this morning. He states that at 04:00 hours he began to vomit. He states that he has been vomiting nonstop and has not been able to hold down food or fluid. He is also complaining of epigastric pain which she describes as an intermittent spasm like pain which is 7/10. The pain is worse after he vomits. He also had 2 liquidy stools today. He has had no blood in the emesis or in the stools. States that he is always tremulous and his tremors are no worse than his baseline. He denied fever but he states that he has been having chills. Denied rhinorrhea, sore throat, cough, chest pain, shortness of breath. MD complaint: alcohol intoxication and alcohol dependence Last drink: Hours (ago) (The today at 03:00 hours) Amount of alcohol consumed: Large amounts of vodka, unable to quantify exact amount Chronic alcohol use: No (The patient is a binge drinker) Previous visits for alcohol intoxication: Yes (05/06/2021) Recent trauma: No Associated symptoms: nausea, vomiting, abdominal pain and other (Diarrhea) Treatments prior to arrival: none Related Data Home Medications Medication Instructions Recorded Confirmed buspirone 5 mg tablet 1 tab PO DAILY@0630 05/06/21 05/13/21 divalproex 500 mg tablet,extended 1 tab PO DAILY 05/06/21 05/13/21 release 24 hr escitalopram oxalate 5 mg tablet 1 tab PO DAILY 05/06/21 05/13/21 Previous Rx's Medication Instructions Recorded folic acid 1 mg tablet 1 mg PO DAILY #30 tabs 05/07/21 multivitamin with folic acid 400 1 tab PO DAILY #30 tabs 05/07/21 mcg tablet (Tab-A-Edmund) thiamine mononitrate (vit B1) 100 100 mg PO DAILY #30 tabs 05/07/21 mg tablet naltrexone 50 mg tablet 50 mg PO DAILY #30 tabs 05/10/21 naltrexone microspheres 380 mg 380 mg IM Q4W 30 days #1 ea 11/24/21 intramuscular suspension,extended release (Vivitrol) chlordiazepoxide HCl 25 mg capsule 50 mg PO TID 4 days #24 caps 05/28/22 ondansetron 4 mg disintegrating 4 mg PO Q6-8H PRN nausea and 05/28/22 tablet vomiting #14 tabs Allergies Allergy/AdvReac Type Severity Reaction Status Date / Time No Known Allergies Allergy Verified 05/27/22 22:24 [No Known Allergies*] Review of Systems Review of Systems: Yes all other systems are reviewed and are negative [facility] Past Medical History Attestation statement: The following information was validated with the patient. Medical History Asthma Fatigue No known health problems Seizure Social History Social History Household Members: Family Household Members Other:: mother and step father Housing: House Do you presently have visiting nurse or other home services: No Alcohol intake: current Alcohol intake frequency: 3 or more drinks per day Alcohol type: hard liquor Patient Tobacco Use Status: Never used Tobacco Use of substances other than those prescribed or required for medical reasons: No Substance Use Type: Marijuana Advance Directives: No Advance Directives Information Provided: Yes service: No Current occupational status: employed Physical Exam ED Vital Signs: Vital Signs - 24 hr 05/27/22 22:24 05/28/22 00:00 05/28/22 02:00 Temperature 98.3 F Pulse Rate 133 H 110 H 114 H Respiratory Rate 18 14 27 H Blood Pressure 145/88 H 140/85 H 131/75 Pulse Oximetry 97 97 95 Oxygen Delivery Method Room Air Room Air Room Air 05/28/22 05:10 Temperature 98.0 F Pulse Rate 77 Respiratory Rate 16 Blood Pressure 124/74 Pulse Oximetry 92 Oxygen Delivery Method Room Air BMI result Body Mass Index 38.0 Const General: cooperative and no acute distress Orientation/consciousness: oriented to person and oriented to place Limitations: no limitations HENMT Head: Yes normal to inspection, Yes normocephalic and Yes atraumatic Ears: external ears normal General nose exam: Normal external nose present Face and sinus: Yes normal facial exam Mouth: Normal oral and palatal mucosa present Throat: Yes posterior oropharynx normal Eyes General: appearance normal, both eyes and all related structures Pupils: Equal, round and reactive pupils present Neck Neck: Yes normal visual inspection, Yes no lymphadenopathy, Yes trachea midline and Yes supple Chest Chest palpation & inspection: normal inspection of the chest and normal palpation of entire chest wall Resp Effort & Inspection: normal respiratory effort and able to speak in complete sentences Auscultation: clear to auscultation bilaterally Cardio Rate: regular rate Rhythm: regular rhythm Heart sounds: S1 normal heart sound present, S2 normal heart sound present and no murmurs GI Inspection: Yes normal to inspection Palpation (GI): Soft to palpation, Tenderness to palpation present (GI) in the epigastrum (Moderate) and no guarding Auscultation: normal bowel sounds General: Yes no CVA tenderness Back/Spine/Pelvis Back: no CVA tenderness Skin General skin exam: no rashes or lesions noted Neuro General: oriented to person and oriented to place Cranial nerves: Yes CN's II-XII intact bilaterally and Yes Equal, round and reactive pupils present Cognition (Neuro): normal cognition Motor exam (neuro): 5/5 motor strength present throughout Extrem General: Yes normal to inspection Psych Appearance: grossly normal Speech and movement: Normal speech and movement present Affect: normal affect Attitude: cooperative Thought process: Normal thought process present Thought content: Normal thought content present Course Course Course Narrative: 32-year-old male with a history of alcohol use disorder, who is a binge drinker, who had approximately 3 months of sobriety prior to drinking 2 days prior. Patient states he has been drinking vodka in large quantities but cannot quantify the amount his last drink was this morning at 03:00 hours . At 04:00 hours he began vomiting and developed epigastric pain. Vital signs did reveal an elevated blood pressure of 145/88 elevated pulse of 133. Examination did reveal epigastric tenderness otherwise was unremarkable. Laboratory evaluation was obtained. Patient was ordered to get normal saline 1 L IV, Pepcid 20 mg IV and Zofran 4 mg IV. 2355: Laboratory evaluation: CBC was normal. CMP revealed a low CO2 of 16. Elevated AST and ALT of 80 and 41. Lipase was normal at 26. Blood ethanol level was 206. 0640: The patient is Allyssa got some improvement with the above medications however he continued to vomit, therefore he was given Reglan 10 mg and Benadryl 50 mg IV with improvement of his nausea and vomiting. Patient did develop increase tremors with no delirium therefore he was given Ativan 2 mg orally with some improvement. I did re-evaluate the patient he states that he is feeling better and he does want to go home. He is still tremulous therefore he was given Librium 50 mg orally and will be started on Librium 50 mg 3 times a day for 4 days. The patient was advised to pursue outpatient detox and also to contact [facility] for counseling for depression anxiety and possible medication therapy. [facility] - Alcohol Medical Records Attestation: I reviewed the patient's medical records. Lab Data Attestation: I reviewed the patient's lab results. Result diagrams: 05/27/22 22:33 05/27/22 22:33 Labs: Lab Results 05/27/22 05/27/22 05/28/22 Range/Units 22:33 22:33 00:29 WBC 8.0 (4.8-10.8) X10*3/uL RBC 5.33 (4.60-5.80) X10*6/uL Hgb 16.0 (14.0-18.0) g/dl Hct 47.2 (42.0-52.0) % MCV 88.6 (80.0-98.0) fL MCH 30.0 (27.0-33.0) pg MCHC 33.9 (31.0-36.0) g/dl RDW 14.4 (11.0-16.0) % Plt Count 190 (160-400) X10*3/uL MPV 9.4 (9.4-12.4) fL Immature Gran % (Auto) 0.2 (0.0-0.4) % Neut % (Auto) 84.5 H (45-73) % Lymph % (Auto) 12.3 L (20-40) % Heard % (Auto) 2.5 (2-11) % Eos % (Auto) 0.1 (0-4) % Baso % (Auto) 0.4 (0-2) % Lymph # (Auto) 1.0 L (1.2-4.9) X10*3/uL Heard # (Auto) 0.2 (0.1-1.2) X10*3/uL Eos # (Auto) 0.0 (0.0-0.4) X10*3/uL Baso # (Auto) 0.0 (0.0-0.2) X10*3/uL Abs Immat Gran (auto) 0.02 (0.00-0.03) X10*3/uL Absolute Neuts (auto) 6.8 (2.0-8.3) x10*3/uL Absolute Nucleated RBC 0.000 (0.0-0.012) X10*3/uL Nucleated RBC % (auto) 0.0 (0.0-0.2) /100WBC Sodium 137 (135-145) mmol/L Potassium 4.9 (3.3-5.1) mmol/L Chloride 97 (96-108) mmol/L Carbon Dioxide 16 L (22-29) mmol/L Anion Gap 29 H (12-20) BUN 13 (9-16) mg/dL Creatinine 1.15 (0.5-1.4) mg/dL Estim Creat Clear Calc 113.7 Estimated GFR > 60 Random Glucose 89 (60-115) mg/dL Calcium 8.7 (8.4-10.2) mg/dL Total Bilirubin 0.5 (0.0-1.0) mg/dL Direct Bilirubin 0.3 (0.0-0.5) mg/dL AST 80 H (5-37) U/L ALT 41 H (0-40) U/L Alkaline Phosphatase 89 (39-117) U/L Total Protein 8.0 D (6.5-8.0) g/dL Albumin 5.0 D (3.5-5.0) g/dL Lipase 26 (8-78) U/L Urine Color Urine Appearance Urine pH (5.0-8.0) Ur Specific [place] (1.005-1.025) Urine Protein (NEG-TRACE) MG/DL Urine Glucose (UA) (NEG) MG/DL Urine Ketones (NEG) MG/DL Urine Blood (NEG) Urine Nitrite (NEG) Ur Leukocyte Esterase (NEG) Urine RBC (0) /HPF Urine WBC (0-4) /HPF Ur Squamous Epith Cells /LPF Urine Bacteria /LPF Urine Mucus /LPF Ethyl Alcohol 206 mg/dL COVID-19 (CELE) Negative (Negative) COVID-19 Clin Com See Note 05/28/22 Range/Units 03:12 WBC (4.8-10.8) X10*3/uL RBC (4.60-5.80) X10*6/uL Hgb (14.0-18.0) g/dl Hct (42.0-52.0) % MCV (80.0-98.0) fL MCH (27.0-33.0) pg MCHC (31.0-36.0) g/dl RDW (11.0-16.0) % Plt Count (160-400) X10*3/uL MPV (9.4-12.4) fL Immature Gran % (Auto) (0.0-0.4) % Neut % (Auto) (45-73) % Lymph % (Auto) (20-40) % Heard % (Auto) (2-11) % Eos % (Auto) (0-4) % Baso % (Auto) (0-2) % Lymph # (Auto) (1.2-4.9) X10*3/uL Heard # (Auto) (0.1-1.2) X10*3/uL Eos # (Auto) (0.0-0.4) X10*3/uL Baso # (Auto) (0.0-0.2) X10*3/uL Abs Immat Gran (auto) (0.00-0.03) X10*3/uL Absolute Neuts (auto) (2.0-8.3) x10*3/uL Absolute Nucleated RBC (0.0-0.012) X10*3/uL Nucleated RBC % (auto) (0.0-0.2) /100WBC Sodium (135-145) mmol/L Potassium (3.3-5.1) mmol/L Chloride (96-108) mmol/L Carbon Dioxide (22-29) mmol/L Anion Gap (12-20) BUN (9-16) mg/dL Creatinine (0.5-1.4) mg/dL Estim Creat Clear Calc Estimated GFR Random Glucose (60-115) mg/dL Calcium (8.4-10.2) mg/dL Total Bilirubin (0.0-1.0) mg/dL Direct Bilirubin (0.0-0.5) mg/dL AST (5-37) U/L ALT (0-40) U/L Alkaline Phosphatase (39-117) U/L Total Protein (6.5-8.0) g/dL Albumin (3.5-5.0) g/dL Lipase (8-78) U/L Urine Color YELLOW Urine Appearance CLEAR Urine pH 5.5 (5.0-8.0) Ur Specific [place] >= 1.030 H (1.005-1.025) Urine Protein NEG (NEG-TRACE) MG/DL Urine Glucose (UA) NEG (NEG) MG/DL Urine Ketones >=80 (NEG) MG/DL Urine Blood TRACE (NEG) Urine Nitrite NEG (NEG) Ur Leukocyte Esterase NEG (NEG) Urine RBC 0-2 (0) /HPF Urine WBC 0 (0-4) /HPF Ur Squamous Epith Cells TRACE /LPF Urine Bacteria TRACE /LPF Urine Mucus 1+ /LPF Ethyl Alcohol mg/dL COVID-19 (CELE) (Negative) COVID-19 Clin Com ECG Data ECG #1: Attestation: I personally reviewed and interpreted this ECG as follows: Interpretation: 2317: Sinus tachycardia with rate of 107, normal PA interval, QRS duration and QTC interval, inverted T-wave in lead 3, no ST segment elevation, no ST segment depression, no PACs, no PVCs, except for the tachycardia this is a normal EKG, no old EKG for comparison. Discharge Plan Discharge Clinical Impression: Alcohol use disorder, severe, dependence Alcohol withdrawal Qualifiers: Complication of substance-induced condition: uncomplicated Qualified Code(s): F10.930 - Alcohol use, unspecified with withdrawal, uncomplicated Acute alcoholic gastritis Qualifiers: Gastritis bleeding: without bleeding Qualified Code(s): K29.20 - Alcoholic gastritis without bleeding Vomiting Qualifiers: Vomiting type: unspecified Nausea presence: with nausea Qualified Code(s): R11.2 - Nausea with vomiting, unspecified Patient Disposition: Home, Self-Care Instructions: Gastritis (ED), Alcohol Use Disorder (ED) Additional Instructions: Your blood work did reveal a slightly low CO2 (bicarb) of 16, this is consistent with your vomiting and alcohol use. Your blood alcohol level was elevated 206 (legal limit of intoxication is 80). Your nausea and vomiting is most likely caused by alcoholic gastritis (inflammation of your stomach caused by drinking too much alcohol). Take Pepcid (famotidine) 20 mg pills, 1 pill once a day for 1 month, this will reduce the amount of acid that your stomach bruises and help the inflammation in your stomach heal. Take Zofran ODT 4 mg pills, 1 pill dissolved in your mouth every 8 hours as needed for nausea and vomiting. I am concerned that you are withdrawing from alcohol therefore I am starting you on Librium (chlordiazepoxide) 25 mg pills, take 2 pills 3 times a day (every 6 hours while you are awake) for 4 days. This medication is a benzodiazepine similar to Valium and can be addicting, if your concerned about getting addicted to a benzodiazepine then do not get this prescription filled. Your given a list of detox clinics, start calling them today to see if there is a bed available for outpatient treatment. Also call [facility] to get some counseling/treated for your depression. Follow-up with your doctor in 2 days. Please return to the emergency department if your symptoms get worse or if you develop any symptoms that are concerning to you. Prescriptions: New chlordiazepoxide HCl 25 mg capsule 50 mg PO TID 4 Days Qty: 24 0RF ondansetron 4 mg tablet,disintegrating 4 mg PO Q6-8H PRN (Reason: nausea and vomiting) Qty: 14 0RF No Action buspirone 5 mg tablet 1 tab PO DAILY@0630 divalproex 500 mg tablet extended release 24 hr 1 tab PO DAILY escitalopram oxalate 5 mg tablet 1 tab PO DAILY folic acid 1 mg Tablet 1 mg PO DAILY Qty: 30 0RF thiamine mononitrate (vit B1) 100 mg Tablet 100 mg PO DAILY Qty: 30 0RF multivitamin with folic acid [Tab-A-Edmund] 400 mcg Tablet 1 tab PO DAILY Qty: 30 0RF naltrexone 50 mg tablet 50 mg PO DAILY Qty: 30 0RF Vivitrol 380 mg suspension,extended rel recon 380 mg IM Q4W 30 Days Qty: 1 5RF
[2022-05-28] VITALS: BP 140/85; PULSE 110; RESP 14; O2SAT 97
[2022-05-28] MEDS: 0.9 % Sodium Chloride 1,000 ML 999 ML IV ×2 (00:22→03:19)
[2022-05-28] MEDS: Famotidine/PF 20 MG/2 ML VIAL IVPUSH (00:24)
[2022-05-28] MEDS: ondansetron HCL 4 MG/2 ML VIAL IVPUSH (00:24)
[2022-05-28 00:51] LABS: COVID-19 Test Negative (Negative)
[2022-05-28 02:00] VITALS: BP 131/75; PULSE 114; RESP 27; O2SAT 95
[2022-05-28] MEDS: diphenhydrAMINE HCL 50 MG/ML VIAL IVPUSH (03:19)
[2022-05-28 03:24] LABS: Appearance Urine CLEAR; Color Urine YELLOW; Glucose Urine UA NEG (NEG); Leukocyte Esterase Urine NEG (NEG); Nitrite Urine NEG (NEG); PH 5.5 (5.0-8.0); Specific Gravity - Urine >= 1.030 (1.005-1.025); UACC Culture Trigger NO; Urine Blood TRACE (NEG); Urine Ketones >=80 MG/DL (NEG); Urine Protein NEG (NEG-TRACE)
[2022-05-28] MEDS: Metoclopramide HCl 10 MG/2 ML VIAL IVPUSH (03:26)
[2022-05-28 03:35] LABS: Bacteria Urine TRACE /LPF; Mucus Urine 1+ /LPF; RBC Urine 0-2 /HPF (0); Squamous Epithelial Cell Urine TRACE /LPF; WBC Urine 0 /HPF (0-4)
[2022-05-28] MEDS: LORazepam 1 MG TABLET 2 MG PO (03:48)
[2022-05-28 05:10] VITALS: BP 124/74; PULSE 77; RESP 16; TEMP 36.7; O2SAT 92
[2022-05-28] MEDS: chlordiazePOXIDE HCl 25 MG CAPSULE 50 MG PO (06:51)
== END 2022-05-28 07:21 | disposition home or self-care (01) ==
PROVIDERS: Emergency Provider Emergency Medicine Emergency Medical Services; PCP Internal Medicine
DX: F10.230 Alcohol dependence with withdrawal, uncomplicated (principal); Y90.7 Blood alcohol level of 200-239 mg/100 ml; K29.20 Alcoholic gastritis without bleeding; R11.2 Nausea with vomiting, unspecified; R00.0 Tachycardia, unspecified; Z20.822 Contact with and (suspected) exposure to COVID-19; Z79.899 Other long term (current) drug therapy
CPT/HCPCS: 36415; 80048; 80076; 81001; 82077; 83690; 85025; 87635; 93005; 96361; 96374; 96375; 99284; 99285; J1200; J2405; J2765

== ENCOUNTER 2022-10-19 18:29 | Emergency (ER) | payer MEDICAID, SELFPAY ==
--- NOTE | ~2022-10-19 | CT_ITS ---
EXAMINATION: HEAD CT WITHOUT CONTRAST CERVICAL SPINE CT WITHOUT CONTRAST CLINICAL INFORMATION: Status post fall COMPARISON: None. TECHNIQUE: Contiguous axial imaging of the head was performed without the administration of IV contrast. Axial multidetector volumetric images were also performed through the cervical spine without contrast. Multiplanar reconstructed images in coronal and sagittal orientations were submitted. DOSE: 1484 mGy-cm FINDING: Head: There is no evidence of acute intracranial hemorrhage or edematous territorial infarction. No abnormal mass effect or midline shift is seen. Rios to white matter differentiation is well preserved. No extra-axial fluid collections are identified. No hydrocephalus. No significant volume loss. There is no abnormal attenuation within the brain parenchyma. No acute osseous or soft tissue abnormality. The mastoid air cells and visualized portions of the paranasal sinuses are well-aerated. Cervical spine: There is anatomic alignment of the vertebral bodies and posterior elements. The atlantoaxial and atlantooccipital articulations are maintained. Vertebral body heights and intervertebral disc spaces are maintained. No evidence of acute fracture. No prevertebral soft tissue swelling. Visualized lung apices appear unremarkable. The thyroid gland is unremarkable. CT/CT head/brain wo IV con IMPRESSION: No CT evidence of acute intracranial bleed or edematous acute territorial infarction. No CT evidence of acute fracture of the cervical spine.
--- NOTE | ~2022-10-19 | CT_ITS ---
EXAMINATION: HEAD CT WITHOUT CONTRAST CERVICAL SPINE CT WITHOUT CONTRAST CLINICAL INFORMATION: Status post fall COMPARISON: None. TECHNIQUE: Contiguous axial imaging of the head was performed without the administration of IV contrast. Axial multidetector volumetric images were also performed through the cervical spine without contrast. Multiplanar reconstructed images in coronal and sagittal orientations were submitted. DOSE: 1484 mGy-cm FINDING: Head: There is no evidence of acute intracranial hemorrhage or edematous territorial infarction. No abnormal mass effect or midline shift is seen. Rios to white matter differentiation is well preserved. No extra-axial fluid collections are identified. No hydrocephalus. No significant volume loss. There is no abnormal attenuation within the brain parenchyma. No acute osseous or soft tissue abnormality. The mastoid air cells and visualized portions of the paranasal sinuses are well-aerated. Cervical spine: There is anatomic alignment of the vertebral bodies and posterior elements. The atlantoaxial and atlantooccipital articulations are maintained. Vertebral body heights and intervertebral disc spaces are maintained. No evidence of acute fracture. No prevertebral soft tissue swelling. Visualized lung apices appear unremarkable. The thyroid gland is unremarkable. CT/CT cervical spine wo IV con IMPRESSION: No CT evidence of acute intracranial bleed or edematous acute territorial infarction. No CT evidence of acute fracture of the cervical spine.
[2022-10-19 18:40] VITALS: BP 132/102; PULSE 120; RESP 20; TEMP 36.7; O2SAT 93
--- NOTE | 2022-10-19 19:08 | ED_ITS ---
HPI - Alcohol General Chief Complaint: Seizure Stated Complaint: EYE PAIN S/P FALL,+CCOLLAR,WANTS DETOX PER Time Seen by Provider: 10/19/22 18:55 Source: patient Mode of arrival: EMS Limitations: no limitations History of Present Illness HPI narrative: Patient 32 years old with history of depression alcohol abuse usually drinks vodka strong family history of alcohol abuse has not seen any therapist or psychiatrist last drink was 16 hours ago feels in withdrawal had a seizure prior to arrival while in the bed hit his right forehead and night 2 nights then patient does not remember unwitnessed. No loss of vision no blurred vision has a small abrasion to the right forehead area. Feels suicidal for the 1st time for multiple reasons patient does have a history of withdrawal seizure Related Data Home Medications Medication Instructions Recorded Confirmed buspirone 5 mg tablet 1 tab PO DAILY@0630 05/06/21 05/13/21 divalproex 500 mg tablet,extended 1 tab PO DAILY 05/06/21 05/13/21 release 24 hr escitalopram oxalate 5 mg tablet 1 tab PO DAILY 05/06/21 05/13/21 Previous Rx's Medication Instructions Recorded folic acid 1 mg tablet 1 mg PO DAILY #30 tabs 05/07/21 multivitamin with folic acid 400 1 tab PO DAILY #30 tabs 05/07/21 mcg tablet (Tab-A-Edmund) thiamine mononitrate (vit B1) 100 100 mg PO DAILY #30 tabs 05/07/21 mg tablet naltrexone 50 mg tablet 50 mg PO DAILY #30 tabs 05/10/21 naltrexone microspheres 380 mg 380 mg IM Q4W 30 days #1 ea 11/24/21 intramuscular suspension,extended release (Vivitrol) chlordiazepoxide HCl 25 mg capsule 50 mg PO TID 4 days #24 caps 05/28/22 ondansetron 4 mg disintegrating 4 mg PO Q6-8H PRN nausea and 05/28/22 tablet vomiting #14 tabs Allergies Allergy/AdvReac Type Severity Reaction Status Date / Time No Known Allergies Allergy Verified 05/27/22 22:24 [No Known Allergies*] Review of Systems Review of Systems: Yes all other systems are reviewed and are negative PMFSH Past Medical History Medical History Asthma Fatigue No known health problems Seizure Social History Social History Household Members: Family Household Members Other:: mother and step father Housing: House Do you presently have visiting nurse or other home services: No Alcohol intake: current Alcohol intake frequency: 3 or more drinks per day Alcohol type: hard liquor Patient Tobacco Use Status: Never used Tobacco Substance Use Type: Marijuana Advance Directives: No Advance Directives Information Provided: No service: No Current occupational status: employed Physical Exam ED Vital Signs: Vital Signs - 24 hr 10/19/22 18:40 10/19/22 19:29 10/19/22 21:08 Temperature 98.1 F Pulse Rate 120 H 102 H 105 H Respiratory Rate 20 16 Blood Pressure 132/102 H 128/89 Pulse Oximetry 93 94 96 Oxygen Delivery Method Room Air Room Air Room Air 10/19/22 22:28 10/19/22 23:34 Temperature 98.5 F 98.0 F Pulse Rate 111 H 110 H Respiratory Rate 18 19 Blood Pressure 115/70 112/76 Pulse Oximetry 96 95 Oxygen Delivery Method Room Air Room Air BMI result Body Mass Index 37.2 Appearance: Alert. Oriented X3. No acute distress. Eyes: PERRLA, No Nystagmus superficial abrasion right eyelid and right forehead, EOMI fundus benign ENT: Pharynx normal. Oral Mucosa moist Neck: Normal inspection. Neck supple. No midline tenderness CVS: Normal heart rate and rhythm. Pulses normal. Respiratory: No respiratory distress. Equal air entry bilateral, no wheezing /rales/rhonchi Abdomen: Soft and nontender. Bowel sounds are present, no mass palpable, no CVA tenderness Skin: Skin warm and dry. Normal skin color. Normal skin turgor. Extremities: No lower extremity edema. No calf tenderness Psych: BHN intoxicated feel depressed, suicidal ideation + no plan no hallucinations Neuro: Oriented X 3. No motor deficit. No sensory deficit.No cerebellar signs , cranial nerves II-XII intact Medical Decision Making Medical Decision Making MDM Narrative: Patient alcoholic with significant depression feels suicidal with no plan requesting crisis evaluation. Will get crisis evaluation Lab Data MDM Lab Attestation statement: I reviewed the patient's lab results. Result Diagrams: 10/19/22 19:38 10/19/22 19:38 Labs: Lab Results 10/19/22 10/19/2222 Range/Units 19:32 19:32 19:32 WBC (4.8-10.8) X10*3/uL RBC (4.60-5.80) X10*6/uL Hgb (14.0-18.0) g/dl Hct (42.0-52.0) % MCV (80.0-98.0) fL MCH (27.0-33.0) pg MCHC (31.0-36.0) g/dl RDW (11.0-16.0) % Plt Count (160-400) X10*3/uL MPV (9.4-12.4) fL Immature Gran % (Auto) (0.0-0.4) % Neut % (Auto) (45-73) % Lymph % (Auto) (20-40) % Banner % (Auto) (2-11) % Eos % (Auto) (0-4) % Baso % (Auto) (0-2) % Lymph # (Auto) (1.2-4.9) X10*3/uL Banner # (Auto) (0.1-1.2) X10*3/uL Eos # (Auto) (0.0-0.4) X10*3/uL Baso # (Auto) (0.0-0.2) X10*3/uL Abs Immat Gran (auto) (0.00-0.03) X10*3/uL Absolute Neuts (auto) (2.0-8.3) x10*3/uL Absolute Nucleated RBC (0.0-0.012) X10*3/uL Nucleated RBC % (auto) (0.0-0.2) /100WBC Sodium (135-145) mmol/L Potassium (3.3-5.1) mmol/L Chloride (96-108) mmol/L Carbon Dioxide (22-29) mmol/L Anion Gap (12-20) BUN (9-16) mg/dL Creatinine (0.5-1.4) mg/dL Estim Creat Clear Calc Estimated GFR Random Glucose (60-115) mg/dL Calcium (8.4-10.2) mg/dL Magnesium (1.6-2.6) mg/dL Total Bilirubin (0.0-1.0) mg/dL AST (5-37) U/L ALT (0-40) U/L Alkaline Phosphatase (39-117) U/L Total Protein (6.5-8.0) g/dL Albumin (3.5-5.0) g/dL Lipase (8-78) U/L Urine Color Yellow Urine Appearance Clear Urine pH 5.0 (5.0-9.0) Ur Specific [place] 1.020 (1.005-1.025) Urine Protein Trace (Neg-Trace) mg/dL Urine Glucose (UA) Negative (Negative) mg/dL Urine Ketones Negative (Negative) mg/dL Urine Blood Negative (Negative) Urine Nitrite Negative (Negative) Ur Leukocyte Esterase Negative (Negative) Urine Opiates Screen Not Detected (Not Detect) Urine Fentanyl Screen Not Detected (Not Detect) Ur Barbiturates Screen Not Detected (Not Detect) Ur Phencyclidine Scrn Not Detected (Not Detect) Ur Amphetamines Screen Not Detected (Not Detect) U Benzodiazepines Scrn Not Detected (Not Detect) Urine Cocaine Screen Not Detected (Not Detect) U Marijuana (THC) Screen Not Detected (Not Detect) Ethyl Alcohol mg/dL COVID-19 (CELE) Negative (Negative) COVID-19 Clin Com See Note 10/19/22 10/19/22 10/19/22 Range/Units 19:38 19:38 19:38 WBC 7.1 (4.8-10.8) X10*3/uL RBC 5.60 (4.60-5.80) X10*6/uL Hgb 16.8 (14.0-18.0) g/dl Hct 48.2 (42.0-52.0) % MCV 86.1 (80.0-98.0) fL MCH 30.0 (27.0-33.0) pg MCHC 34.9 (31.0-36.0) g/dl RDW 13.5 (11.0-16.0) % Plt Count 228 (160-400) X10*3/uL MPV 9.7 (9.4-12.4) fL Immature Gran % (Auto) 0.3 (0.0-0.4) % Neut % (Auto) 66.3 (45-73) % Lymph % (Auto) 29.5 (20-40) % Banner % (Auto) 2.5 (2-11) % Eos % (Auto) 0.6 (0-4) % Baso % (Auto) 0.8 (0-2) % Lymph # (Auto) 2.1 (1.2-4.9) X10*3/uL Banner # (Auto) 0.2 (0.1-1.2) X10*3/uL Eos # (Auto) 0.0 (0.0-0.4) X10*3/uL Baso # (Auto) 0.1 (0.0-0.2) X10*3/uL Abs Immat Gran (auto) 0.02 (0.00-0.03) X10*3/uL Absolute Neuts (auto) 4.7 (2.0-8.3) x10*3/uL Absolute Nucleated RBC 0.000 (0.0-0.012) X10*3/uL Nucleated RBC % (auto) 0.0 (0.0-0.2) /100WBC Sodium 143 (135-145) mmol/L Potassium 4.4 (3.3-5.1) mmol/L Chloride 103 (96-108) mmol/L Carbon Dioxide 23 (22-29) mmol/L Anion Gap 21 H (12-20) BUN 11 (9-16) mg/dL Creatinine 1.00 (0.5-1.4) mg/dL Estim Creat Clear Calc 129.4 Estimated GFR > 60 Random Glucose 92 (60-115) mg/dL Calcium 9.1 (8.4-10.2) mg/dL Magnesium 1.9 (1.6-2.6) mg/dL Total Bilirubin 0.4 (0.0-1.0) mg/dL AST 35 (5-37) U/L ALT 36 (0-40) U/L Alkaline Phosphatase 80 (39-117) U/L Total Protein 7.1 (6.5-8.0) g/dL Albumin 4.5 (3.5-5.0) g/dL Lipase 14 (8-78) U/L Urine Color Urine Appearance Urine pH (5.0-9.0) Ur Specific [place] (1.005-1.025) Urine Protein (Neg-Trace) mg/dL Urine Glucose (UA) (Negative) mg/dL Urine Ketones (Negative) mg/dL Urine Blood (Negative) Urine Nitrite (Negative) Ur Leukocyte Esterase (Negative) Urine Opiates Screen (Not Detect) Urine Fentanyl Screen (Not Detect) Ur Barbiturates Screen (Not Detect) Ur Phencyclidine Scrn (Not Detect) Ur Amphetamines Screen (Not Detect) U Benzodiazepines Scrn (Not Detect) Urine Cocaine Screen (Not Detect) U Marijuana (THC) Screen (Not Detect) Ethyl Alcohol 354 H* mg/dL COVID-19 (CELE) (Negative) COVID-19 Clin Com Medications Administered Discontinued Medications Generic Name Dose Route Start Last Admin Trade Name Freq PRN Reason Stop Dose Admin Sodium Chloride 1,000 mls @ 999 mls/hr 10/19/22 19:03 10/19/22 21:07 Ns IV 10/19/22 20:03 Infused .Q1H1M ONE Infusion Sodium Chloride 1,000 mls @ 999 mls/hr 10/19/22 22:32 10/20/22 00:09 Ns IV 10/19/22 23:32 Infused .Q1H1M ONE Infusion Lorazepam 1 mg 10/19/22 19:04 10/19/22 19:47 Lorazepam 2 Mg/Ml Vial IVPUSH 10/19/22 19:05 1 mg ONCE ONE Administration Lorazepam 2 mg 10/19/22 20:55 10/19/22 21:07 Lorazepam 1 Mg Tablet PO 10/19/22 20:56 2 mg ONCE ONE Administration Discharge Plan Discharge Clinical Impression: Alcohol use disorder, severe, dependence, Depression with suicidal ideation Patient Disposition: Still a Patient Prescriptions: No Action buspirone 5 mg tablet 1 tab PO DAILY@0630 divalproex 500 mg tablet extended release 24 hr 1 tab PO DAILY escitalopram oxalate 5 mg tablet 1 tab PO DAILY folic acid 1 mg Tablet 1 mg PO DAILY Qty: 30 0RF thiamine mononitrate (vit B1) 100 mg Tablet 100 mg PO DAILY Qty: 30 0RF multivitamin with folic acid [Tab-A-Edmund] 400 mcg Tablet 1 tab PO DAILY Qty: 30 0RF naltrexone 50 mg tablet 50 mg PO DAILY Qty: 30 0RF chlordiazepoxide HCl 25 mg capsule 50 mg PO TID 4 Days Qty: 24 0RF ondansetron 4 mg tablet,disintegrating 4 mg PO Q6-8H PRN (Reason: nausea and vomiting) Qty: 14 0RF Vivitrol 380 mg suspension,extended rel recon 380 mg IM Q4W 30 Days Qty: 1 5RF
[2022-10-19 19:29] VITALS: BP 128/89; PULSE 102; RESP 16; O2SAT 94
[2022-10-19 19:40] LABS: Appearance Urine Clear; Color Urine Yellow; Glucose Urine UA Negative (Negative); Leukocyte Esterase Urine Negative (Negative); Nitrite Urine Negative (Negative); Urine Blood Negative (Negative); Urine Ketones Negative (Negative); Urine Protein Trace mg/dL (Neg-Trace)
[2022-10-19] MEDS: 0.9 % Sodium Chloride 1,000 ML 999 ML IV ×2 (19:43→22:33)
[2022-10-19] MEDS: LORazepam 2 MG/ML VIAL 1 MG IVPUSH (19:47)
[2022-10-19 19:48] VITALS: BMI 37.2
[2022-10-19 19:48] LABS: Basophils Absolute Auto 0.1 X10*3/uL (0.0-0.2); Basophils Percent Auto 0.8 % (0-2); Eosinophils Percent Auto 0.6 % (0-4); Hematocrit 48.2 % (42.0-52.0); Hemoglobin 16.8 g/dl (14.0-18.0); Imm Gran Abs Auto 0.02 X10*3/uL (0.00-0.03); Imm Gran Pct Auto 0.3 % (0.0-0.4); Lymphocytes Absolute Auto 2.1 X10*3/uL (1.2-4.9); Lymphocytes Percent Auto 29.5 % (20-40); MANUAL DIFF FLAG NO; Mean Corpuscular HGB Conc 34.9 g/dl (31.0-36.0); Mean Corpuscular Volume 86.1 fL (80.0-98.0); Mean Platelet Volume 9.7 fL (9.4-12.4); Monocytes Absolute Auto 0.2 X10*3/uL (0.1-1.2); Monocytes Percent Auto 2.5 % (2-11); Neutrophils Absolute Auto 4.7 x10*3/uL (2.0-8.3); Neutrophils Percent Auto 66.3 % (45-73); Platelet Count 228 X10*3/uL (160-400); Red Cell Distribution Width 13.5 % (11.0-16.0); White Blood Count 7.1 X10*3/uL (4.8-10.8)
[2022-10-19 20:00] LABS: COVID-19 Test Negative (Negative)
[2022-10-19 20:03] LABS: Amphetamine Screen Urine Not Detected (Not Detect); Barbiturates, Urine Not Detected (Not Detect); Benzodiazepines Screen Urine Not Detected (Not Detect); Cannabinoid Screen Urine Not Detected (Not Detect); Cocaine Screen Urine Not Detected (Not Detect); Fentanyl, urine Not Detected (Not Detect); Opiate Screen Urine Not Detected (Not Detect); Phencyclidine Screen Urine Not Detected (Not Detect)
[2022-10-19 20:07] LABS: Ethanol 354 mg/dL
[2022-10-19 20:23] LABS: Alanine Aminotransferase 36 U/L (0-40); Albumin Level 4.5 g/dL (3.5-5.0); Alkaline Phosphatase 80 U/L (39-117); Anion Gap 21 (12-20); Aspartate Amino Transferase 35 U/L (5-37); Bilirubin Total 0.4 mg/dL (0.0-1.0); Blood Urea Nitrogen 11 mg/dL (9-16); Calcium 9.1 mg/dL (8.4-10.2); Carbon Dioxide 23 mmol/L (22-29); Chloride 103 mmol/L (96-108); Creatinine Clr Calc Pharmacy 129.4; Estimated Glomerular Filt Rate > 60; Glucose Random 92 mg/dL (60-115); Lipase 14 U/L (8-78); Magnesium 1.9 mg/dL (1.6-2.6); Potassium 4.4 mmol/L (3.3-5.1); Sodium 143 mmol/L (135-145); Total Protein 7.1 g/dL (6.5-8.0)
[2022-10-19] MEDS: LORazepam 1 MG TABLET 2 MG PO (21:07)
[2022-10-19 21:08] VITALS: PULSE 105; O2SAT 96
--- NOTE | 2022-10-19 21:51 | MHC.RECOVSUP ---
reason consult:ETOH o? ? ? Current location:ED16?? o? ? ? Identified substance use concern:?? -Support? ? Intervention: ? Plan:? oFollow up tomorrow?? ? Additional information:PT is being admitted for Alcohol use, please follow up tomorrow.
[2022-10-19 22:28] VITALS: BP 115/70; PULSE 111; RESP 18; TEMP 36.9; O2SAT 96
--- NOTE | 2022-10-19 22:31 | PC.NURSE ---
MD desai made aware of tachycardia. plan for additional liter of fluid
[2022-10-19 23:34] VITALS: BP 112/76; PULSE 110; RESP 19; TEMP 36.7; O2SAT 95
--- NOTE | 2022-10-20 00:17 | PC.NURSE ---
patient endorses suicidal ideation over the past 36 hours with no plan. he states the etoh seizure wasn't an attempt to harm himself. was recently at [facility] and told to follow up with his PCP to start anxiety meds, which he hasn't been able to do yet. MD desai aware. N consult placed by this RN. patient changed over and belongings secured.
--- NOTE | 2022-10-20 00:23 | MHC.CARE ---
CARE team consult received. Pt is intoxicated, ethanol level was 354 at 1938. Pt will be clinically sober for evaluation after 5am.
--- NOTE | 2022-10-20 00:27 | PC.NURSE ---
patient requesting anxiety medication. MD Decker made aware.
[2022-10-20 02:22] VITALS: BP 116/80; PULSE 107; RESP 16; TEMP 36.3; O2SAT 96
--- NOTE | 2022-10-20 02:25 | MHC.EDTECH ---
pt went to bathroom escorted and back to bed, he ask for something to eat and talha a turkey sandwich with em was given along with a pitcher of water, vitals were taken he is now just relaxing
[2022-10-20 04:24] VITALS: BP 113/70; PULSE 111; RESP 17; TEMP 36.8; O2SAT 94
[2022-10-20 05:57] VITALS: BP 121/71; PULSE 108; RESP 20; TEMP 36.7; O2SAT 95
--- NOTE | 2022-10-20 05:58 | MHC.EDTECH ---
pt is resting quietly a pitcher of water was given, no other issues
--- NOTE | 2022-10-20 06:42 | PC.NURSE ---
patient allowed to have his cellphone. all other belongings remain locked up.
--- NOTE | 2022-10-20 07:48 | PC.NURSE ---
diet order placed, pt requesting breakfast
[2022-10-20 08:00] VITALS: BP 109/74; PULSE 99; RESP 15; O2SAT 94
--- NOTE | 2022-10-20 09:38 | PC.NURSE ---
pt given breakfast tray. Calm/ cooperative.
[2022-10-20 10:00] VITALS: BP 123/82; PULSE 93; RESP 14; O2SAT 97
--- NOTE | 2022-10-20 11:13 | PC.NURSE ---
pt cleared by care team, denying SI. To been seen by [facility] to provide services. [facility] for counseling and possible PHP.
--- NOTE | 2022-10-20 11:43 | MHC.CARE ---
CC Referral sent
--- NOTE | 2022-10-20 12:14 | MHC.RECOVRN ---
Met with pt in 19H after clearance from CARE Team. Pt is interested in ATS, has had 2 admissions previously (one [facility]), last a week or so ago. Pt has been drinking vodka, 1.75L over a 2 day period since discharging from . Pt has been drinking this amount for roughly 2 years. Pt is currently employed and lives with mother and step dad, mother encouraging pt to seek treatment. [facility] has availability, referral sent.
--- NOTE | 2022-10-20 17:11 | MHC.CARE ---
Pt completed phone intake with [facility]. Pt has been discharged to the waiting room to await a lyft for transport to facility.
== END 2022-10-20 16:53 | disposition home or self-care (01) ==
PROVIDERS: Emergency Provider Internal Medicine; PCP Internal Medicine
DX: F10.229 Alcohol dependence with intoxication, unspecified (principal); Y90.8 Blood alcohol level of 240 mg/100 ml or more; F33.1 Major depressive disorder, recurrent, moderate; R45.851 Suicidal ideations; R51.9 Headache, unspecified; M54.2 Cervicalgia; Z20.822 Contact with and (suspected) exposure to COVID-19; Z79.899 Other long term (current) drug therapy
CPT/HCPCS: 36415; 70450; 72125; 80053; 80307; 81003; 82077; 83690; 83735; 85025; 87635; 96361; 96374; 99284; J2060

== ENCOUNTER → 2022-11-26 14:54 | Outpatient (REF) | payer OTHER, SELFPAY ==
--- NOTE | 2022-11-26 14:59 | CA_ITS ---
Transthoracic Echocardiogram Patient (Last, First, Middle): Tanner Gomez, Gender: Male Date of : 1990 Age: 32 Procedure Date: 11/26/2022 Procedure Type: Transthoracic Echocardiogram Location: OP Height: 175.26 cm Weight: 116.12 kg BSA: 2.29 m2 Heart Rate: bpm BP: 105 / 70 mmHg Wheat Farmer: TO Referring MD: Marie Garvin MD Symptoms: I11.0 Study Quality: Fair/Contrast ECG Rhythm: Sinus Conclusions: - The left ventricular systolic function is normal. The calculated ejection fraction is 59% by biplane method. - No obvious valvular pathology seen on this study. Findings Procedure Information Contrast agent, definity, is being given per protocol without apparent complications. Left Ventricle Normal left ventricular cavity size. The left ventricular systolic function is normal. The calculated ejection fraction is 59% by biplane method. There is no evidence of regional wall motion abnormalities. Diastolic function is normal for age. There is mild septal asymmetric hypertrophy. Right Ventricle Normal right ventricular cavity size and systolic function. Atria Both atria are normal in size. Aortic Valve There is a normal trileaflet aortic valve. There is no aortic valve stenosis. There is no aortic valve regurgitation. Mitral Valve The mitral valve appears normal. There is no mitral valve regurgitation. There is no mitral valve stenosis. Pulmonic Valve The pulmonic valve is likely normal. Tricuspid Valve Normal tricuspid valve structure. There is no tricuspid valve regurgitation. Tricuspid regurgitation envelope is inadequate for calculation of right ventricular systolic pressure. Great Vessels The asc aorta is normal in size. Venous The inferior vena cava is mildly dilated and collapses greater than 50% with inspiration. Pericardium/Pleural There is no evidence of pericardial effusion. Prior Study Comparison No prior study available for comparison. Recommendations, Care & Conclusions No obvious valvular pathology seen on this study. Measurements 2D Linear Measurements IVSd: 1.19 0.6-0.9/0.6-1.0 cm LVIDd: 4.92 3.9-5.3/4.2-5.9 cm LVIDd Index: 2.15 2.4-3.2/2.2-3.1 cm/m2 LVIDs: 3.29 2.0-3.6 cm LVPWd: 0.84 0.7-1.1 cm LA Diam: 3.90 2.7-3.8/3.0-4.0 cm LAIDs Index: 1.70 1.5-2.3 cm/m2 LV Mass: 224.82 67-162/88-224 g LV Mass Index: 98.17 43-95/49-115 g/m2 LVOT Diam: 2.40 3.0+(-)1.3 cm 2D Systolic Function EF 4C: 64.20 >55% EF 2C: 59.60 >55% EF BiP: 59.30 >55% Mitral Valve MV Pk E: 0.91 MV PK A: 0.36 MV Decel Time: 167.00 E/A: 2.50 E'Lateral: 13.40 E'Medial: 8.81 E/E' Med: 10.40 E/E' Lat: 6.80 PHT: 49.00 MVA PHT: 4.49 Decel Hawkins: 5.47 Aortic Valve AoV Pk Nicholas: 0.88 AoV Mn Nicholas: 0.67 AoV VTI: 0.22 AoV Pk Grad: 3.00 Aov Mn Grad: 2.00 RUSS Cont.VTI: 3.55 LVOT LVOT Pk Nicholas: 0.73 LVOT Mn Nicholas: 0.50 LVOT VTI: 0.18 LVOT Pk Grad: 2.00 LVOT Mn Grad: 1.00 LVOT Diam: 2.40 LVOT Area: 4.52 Diastolic Function MV Pk E: 0.91 MV Pk A: 0.36 E/A: 2.50 E'Medial: 8.81 E/E' Med: 10.40 E' Laterial: 13.40 E/E' Lat: 6.80 Right Ventricle TAPSE (mm): 20.40 TVS' Nicholas: 9.68 Tricuspid Valve RA Press: 8.00 Great Vessels Aorta Sinus of Valsalva: 3.95 2.0-3.5 cm Ao Asc: 3.20 2.1-3.4 cm Updated in Other Vendor System with Status of Final Rey Duong MD electronically signed on 11/28/2022 11:52:56 AM with status of Final
== END ==
LOC: HO.CARD 14:54
PROVIDERS: PCP Internal Medicine; Visit Provider Internal Medicine
DX: I11.0 Hypertensive heart disease with heart failure (principal); I50.9 Heart failure, unspecified
CPT/HCPCS: 93306; Q9957

== ENCOUNTER 2023-01-10 20:44 | Emergency (ER) | payer OTHER, SELFPAY ==
[2023-01-10 20:50] VITALS: BP 121/87; BP 144/100; PULSE 107; PULSE 132; RESP 22; TEMP 36.9; O2SAT 96; O2SAT 98; BMI 39.1
--- NOTE | 2023-01-10 21:09 | PC.NURSE ---
This RN alerted by Triaging RN that pt self reported having SI thoughts earlier today. Per Larisa PERRY, pt denying SI @ present time. Security called for changeover.
--- NOTE | 2023-01-10 21:16 | ECG_ITS ---
Test Reason : TACHYCARDIA Blood Pressure : / mmHG Vent. Rate : 109 BPM Atrial Rate : 109 BPM P-R Int : 138 ms QRS Dur : 080 ms QT Int : 338 ms P-R-T Axes : 049 034 031 degrees QTc Int : 455 ms Poor data quality, interpretation may be adversely affected Sinus tachycardia Otherwise normal ECG When compared with ECG of 27-MAY-2022 23:17, No significant change was found Referred By: Carolyn Gonzalez Electronically Signed By:Brock Beltran
--- NOTE | 2023-01-10 21:19 | ED.ALCOHOL ---
HPI - Alcohol General Chief Complaint: Psychiatric Symptoms Stated Complaint: crisis/ etoh Time Seen by Provider: 01/10/23 21:12 Source: patient and police Mode of arrival: EMS Limitations: other (Alcohol intoxication) History of Present Illness HPI narrative: Patient comes to the emergency room accompanied by EMS and police department. Earlier today, patient was found trying to get into a close liquor store. Patient is very intoxicated, non combative, redirectable. Patient states that he feels nauseous, no chest pain or shortness of breath. Earlier today, he expressed suicidal ideation according to patient's nurse. Related Data Home Medications Medication Instructions Recorded Confirmed buspirone 5 mg tablet 1 tab PO DAILY@0630 05/06/21 05/13/21 divalproex 500 mg tablet,extended 1 tab PO DAILY 05/06/21 05/13/21 release 24 hr escitalopram oxalate 5 mg tablet 1 tab PO DAILY 05/06/21 05/13/21 Previous Rx's Medication Instructions Recorded folic acid 1 mg tablet 1 mg PO DAILY #30 tabs 05/07/21 multivitamin with folic acid 400 1 tab PO DAILY #30 tabs 05/07/21 mcg tablet (Tab-A-Edmund) thiamine mononitrate (vit B1) 100 100 mg PO DAILY #30 tabs 05/07/21 mg tablet naltrexone 50 mg tablet 50 mg PO DAILY #30 tabs 05/10/21 naltrexone microspheres 380 mg 380 mg IM Q4W 30 days #1 ea 11/24/21 intramuscular suspension,extended release (Vivitrol) chlordiazepoxide HCl 25 mg capsule 50 mg PO TID 4 days #24 caps 05/28/22 ondansetron 4 mg disintegrating 4 mg PO Q6-8H PRN nausea and 05/28/22 tablet vomiting #14 tabs Allergies Allergy/AdvReac Type Severity Reaction Status Date / Time No Known Allergies Allergy Verified 05/27/22 22:24 [No Known Allergies*] Review of Systems Review of Systems: Constitutional : No Weight loss, No Fever, No Chills, No Night Sweats, No Fatigue, No Malaise ENT/Mouth : No Hearing loss, No Ear Pain, No Nasal Congestion, No Sinus Pain, No Hoarseness, No sore throat, No Rhinorrhea, No Swallowing Difficulty Eyes: No Eye Pain, No Swelling, No Redness, No Foreign Body, No Discharge, No Vision Changes Cardiovascular : No Chest Pain, No SOB, No Dyspnea on Exertion, No Orthopnea, No Edema, complaining of Palpitations Respiratory : No Cough, No Sputum, No Wheezing, No Smoke Exposure, No Dyspnea Gastrointestinal : Complaining of Nausea, No Vomiting, No Diarrhea, No Constipation, No abdominal Pain, No Hematochezia, No Melena Genitourinary : no irregular bleeding, No Dysuria, No Urinary Frequency, No Hematuria, No Urinary Incontinence, No Urgency, No Flank Pain, No Urinary Flow Changes, No Hesitancy Musculoskeletal : No joint pain, No Myalgias, No Joint Swelling Skin : No Skin Lesions, No rash Neuro : No Weakness, No Numbness, No Paresthesias, No Loss of Consciousness, No Dizziness, No Headache Psych : No Anxiety/Panic, No Depression, No SI/HI/AH/VH, No Social Issues, Heme/Lymph: No Bruising, No Bleeding,No Lymphadenopathy Endocrine : No Polyuria, No Polydipsia, No Temperature Intolerance [facility] Past Medical History Medical History (Updated 01/10/23 @ 23:34 by Carolyn Gonzalez MD) Alcohol use disorder, severe, dependence Asthma Seizure Social History Social History Household Members: Family Household Members Other:: mother and step father Housing: House Do you presently have visiting nurse or other home services: No Alcohol intake: current Alcohol intake frequency: 3 or more drinks per day Alcohol type: hard liquor Patient Tobacco Use Status: Never used Tobacco Substance Use Type: Marijuana Advance Directives: No Advance Directives Information Provided: No service: No Current occupational status: employed Physical Exam ED Vital Signs: Vital Signs - 24 hr 01/10/23 20:50 01/10/23 21:38 Temperature 98.4 F Pulse Rate 107 H 113 H Respiratory Rate 22 H 20 Blood Pressure 121/87 130/93 H Pulse Oximetry 96 98 Oxygen Delivery Method Room Air Room Air BMI result Body Mass Index 39.1 Const Other: Appearance: Alert. Oriented X3. Seems uncomfortable, nauseous, intoxicated Eyes: Pupils equal, round and reactive to light. ENT: Pharynx normal. Neck: Normal inspection. Neck supple. No lymph nodes noted. No crepitus CVS: Normal heart rate and rhythm. Pulses normal. Normal S1 and S2 Respiratory sinus rhythm, tachycardic, Breath sounds normal. No Wheezing. No rales Abdomen: Soft and nontender. No rigidity. No distention. Skin: Skin warm and dry. Normal skin color. Normal skin turgor. Extremities: No lower extremity edema. No Lacerations. No Rash Neuro: Oriented X 3. Wobbly gait, patient is intoxicated Psych: calm, cooperative, intoxicated Course Course Course Narrative: Patient is tachycardic between 160 170. Patient receiving IV fluids, Ativan, Zofran. Patient has history of seizures -of patient's labs are pending -care consult pending after the patient gets medically cleared Medical Decision Making Medical Decision Making MDM Narrative: Patient's hematology and chemistry unremarkable, AST ALT slightly elevated to alcohol. Troponin negative. -after 2 L of fluid, patient's heart rate improved to 95. -blood alcohol level 368 -plan: Metabolize to freedom and then care team evaluation for SI -physician observation started at 23:30 Lab Data 01/10/23 21:29 01/10/23 21:29 Labs: Lab Results 01/10/23 01/10/23 01/10/23 Range/Units 21:29 21:29 21:29 WBC 10.4 (4.8-10.8) X10*3/uL RBC 5.59 (4.60-5.80) X10*6/uL Hgb 15.9 (14.0-18.0) g/dl Hct 46.0 (42.0-52.0) % MCV 82.3 (80.0-98.0) fL MCH 28.4 (27.0-33.0) pg MCHC 34.6 (31.0-36.0) g/dl RDW 12.5 (11.0-16.0) % Plt Count 215 (160-400) X10*3/uL MPV 10.0 (9.4-12.4) fL Immature Gran % (Auto) 0.6 H (0.0-0.4) % Neut % (Auto) 70.6 (45-73) % Lymph % (Auto) 24.1 (20-40) % [place] % (Auto) 4.0 (2-11) % Eos % (Auto) 0.2 (0-4) % Baso % (Auto) 0.5 (0-2) % Lymph # (Auto) 2.5 (1.2-4.9) X10*3/uL [place] # (Auto) 0.4 (0.1-1.2) X10*3/uL Eos # (Auto) 0.0 (0.0-0.4) X10*3/uL Baso # (Auto) 0.1 (0.0-0.2) X10*3/uL Abs Immat Gran (auto) 0.06 H (0.00-0.03) X10*3/uL Absolute Neuts (auto) 7.3 (2.0-8.3) x10*3/uL Absolute Nucleated RBC 0.000 (0.0-0.012) X10*3/uL Nucleated RBC % (auto) 0.0 (0.0-0.2) /100WBC Sodium 141 (135-145) mmol/L Potassium 4.3 (3.3-5.1) mmol/L Chloride 102 (96-108) mmol/L Carbon Dioxide 16 L (22-29) mmol/L Anion Gap 27 H (12-20) BUN 11 (9-16) mg/dL Creatinine 0.91 (0.5-1.4) mg/dL Estim Creat Clear Calc 145.9 Estimated GFR > 60 Random Glucose 75 (60-115) mg/dL Calcium 9.0 (8.4-10.2) mg/dL Magnesium 2.0 (1.6-2.6) mg/dL Total Bilirubin 0.5 (0.0-1.0) mg/dL Direct Bilirubin < 0.2 (0.0-0.5) mg/dL AST 48 H (5-37) U/L ALT 66 H (0-40) U/L Alkaline Phosphatase 63 (39-117) U/L Troponin I High Sens < 3.5 (<3.5-35.0) ng/L Total Protein 7.6 (6.5-8.0) g/dL Albumin 4.7 (3.5-5.0) g/dL Ethyl Alcohol 368 H* mg/dL Medications Administered Generic Name Dose Route Start Last Admin Trade Name Freq PRN Reason Stop Dose Admin Sodium Chloride 1,000 mls @ 999 mls/hr 01/10/23 22:45 01/10/23 22:47 Ns IVCONT 01/10/23 23:45 999 mls/hr .Q1H1M ONE Administration Discontinued Medications Generic Name Dose Route Start Last Admin Trade Name Mary PRN Reason Stop Dose Admin Sodium Chloride 1,000 mls @ 999 mls/hr 01/10/23 21:16 01/10/23 22:47 Ns IVCONT 01/10/23 22:16 Infused .Q1H1M ONE Infusion Lorazepam 2 mg 01/10/23 21:18 01/10/23 21:33 Lorazepam 2 Mg/Ml Vial IVPUSH 01/10/23 21:19 2 mg ONCE ONE Administration Ondansetron HCl 4 mg 01/10/23 21:16 01/10/23 21:33 Ondansetron Hcl 4 Mg/2 Ml Vial IVPUSH 01/10/23 21:17 4 mg ONCE ONE Administration Discharge Plan Discharge Clinical Impression: Alcohol use disorder, severe, dependence Patient Disposition: Still a Patient Prescriptions: No Action buspirone 5 mg tablet 1 tab PO DAILY@0630 divalproex 500 mg tablet extended release 24 hr 1 tab PO DAILY escitalopram oxalate 5 mg tablet 1 tab PO DAILY folic acid 1 mg Tablet 1 mg PO DAILY Qty: 30 0RF thiamine mononitrate (vit B1) 100 mg Tablet 100 mg PO DAILY Qty: 30 0RF multivitamin with folic acid [Tab-A-Edmund] 400 mcg Tablet 1 tab PO DAILY Qty: 30 0RF naltrexone 50 mg tablet 50 mg PO DAILY Qty: 30 0RF chlordiazepoxide HCl 25 mg capsule 50 mg PO TID 4 Days Qty: 24 0RF ondansetron 4 mg tablet,disintegrating 4 mg PO Q6-8H PRN (Reason: nausea and vomiting) Qty: 14 0RF Vivitrol 380 mg suspension,extended rel recon 380 mg IM Q4W 30 Days Qty: 1 5RF Interventions: [place]-Suicide Risk Severity Scale Last Done: 01/10/23 21:39
[2023-01-10] MEDS: 0.9 % Sodium Chloride 1,000 ML 999 ML IVCONT ×2 (21:33→22:47)
[2023-01-10] MEDS: ondansetron HCL 4 MG/2 ML VIAL IVPUSH (21:33)
[2023-01-10] MEDS: LORazepam 2 MG/ML VIAL IVPUSH (21:33)
[2023-01-10 21:38] VITALS: BP 130/93; PULSE 113; RESP 20; O2SAT 98
[2023-01-10 21:47] LABS: MANUAL DIFF FLAG NO
[2023-01-10 21:48] LABS: Basophils Absolute Auto 0.1 X10*3/uL (0.0-0.2); Basophils Percent Auto 0.5 % (0-2); Eosinophils Percent Auto 0.2 % (0-4); Hemoglobin 15.9 g/dl (14.0-18.0); Imm Gran Abs Auto 0.06 X10*3/uL (0.00-0.03); Imm Gran Pct Auto 0.6 % (0.0-0.4); Lymphocytes Absolute Auto 2.5 X10*3/uL (1.2-4.9); Lymphocytes Percent Auto 24.1 % (20-40); Mean Corpuscular HGB Conc 34.6 g/dl (31.0-36.0); Mean Corpuscular Hemoglobin 28.4 pg (27.0-33.0); Mean Corpuscular Volume 82.3 fL (80.0-98.0); Monocytes Absolute Auto 0.4 X10*3/uL (0.1-1.2); Neutrophils Absolute Auto 7.3 x10*3/uL (2.0-8.3); Neutrophils Percent Auto 70.6 % (45-73); Platelet Count 215 X10*3/uL (160-400); Red Blood Count 5.59 X10*6/uL (4.60-5.80); Red Cell Distribution Width 12.5 % (11.0-16.0); White Blood Count 10.4 X10*3/uL (4.8-10.8)
[2023-01-10 22:15] LABS: Troponin-I High Sensitivity < 3.5 ng/L (<3.5-35.0)
[2023-01-10 22:39] LABS: Alanine Aminotransferase 66 U/L (0-40); Albumin Level 4.7 g/dL (3.5-5.0); Alkaline Phosphatase 63 U/L (39-117); Anion Gap 27 (12-20); Aspartate Amino Transferase 48 U/L (5-37); Bilirubin Direct < 0.2 mg/dL (0.0-0.5); Bilirubin Total 0.5 mg/dL (0.0-1.0); Blood Urea Nitrogen 11 mg/dL (9-16); Carbon Dioxide 16 mmol/L (22-29); Chloride 102 mmol/L (96-108); Creatinine Clr Calc Pharmacy 145.9; Estimated Glomerular Filt Rate > 60; Ethanol 368 mg/dL; Glucose Random 75 mg/dL (60-115); Potassium 4.3 mmol/L (3.3-5.1); Sodium 141 mmol/L (135-145); Total Protein 7.6 g/dL (6.5-8.0)
[2023-01-11 02:04] VITALS: BP 114/87; PULSE 95; RESP 17; TEMP 36.7; O2SAT 96
[2023-01-11] MEDS: Acetaminophen 325 MG TABLET 650 MG PO (03:22)
[2023-01-11 05:47] VITALS: BP 122/72; PULSE 114; RESP 20; TEMP 36.2; O2SAT 94
--- NOTE | 2023-01-11 06:41 | PC.NURSE ---
Pt desatting to low 80's oxygen saturation while sleeping. Pt placed on 2L per NC.
--- NOTE | 2023-01-11 07:02 | PC.NURSE ---
Resumed care of patient this AM. pt currently resting comfortably in bed, O2 in place sating mid 90's, HR in low 100's. Safety measures in place.
[2023-01-11 07:05] VITALS: BP 109/73; PULSE 105; RESP 14; O2SAT 98
--- NOTE | 2023-01-11 08:31 | PC.NURSE ---
care team at bedside
[2023-01-11 09:05] LABS: Appearance Urine Turbid; Color Urine Dark Yellow; Glucose Urine UA Negative (Negative); Leukocyte Esterase Urine Negative (Negative); Nitrite Urine Negative (Negative); PH 5.5 (5.0-9.0); Specific Gravity - Urine >= 1.030 (1.005-1.025); Urine Blood Negative (Negative); Urine Ketones 15 mg/dL (Negative); Urine Protein Trace mg/dL (Neg-Trace)
[2023-01-11 09:12] LABS: Amphetamine Screen Urine Not Detected (Not Detect); Barbiturates, Urine Not Detected (Not Detect); Benzodiazepines Screen Urine Not Detected (Not Detect); Cannabinoid Screen Urine Not Detected (Not Detect); Cocaine Screen Urine Not Detected (Not Detect); Fentanyl, urine Not Detected (Not Detect); Opiate Screen Urine Not Detected (Not Detect); Phencyclidine Screen Urine Not Detected (Not Detect)
--- NOTE | 2023-01-11 09:57 | PC.NURSE ---
recovery to see pt
[2023-01-11 10:08] VITALS: BP 122/74; PULSE 110; RESP 16; TEMP 36.4; O2SAT 95
--- NOTE | 2023-01-11 10:58 | MHC.CARE ---
Pt was cleared by the CARE Team-plan for detox placement
--- NOTE | 2023-01-11 11:45 | MHC.RECOVRN ---
Met with pt in ED22 after cleared by CARE Team. Pt sitting in bed, awake, alert, easily engages in conversation. Pt reports having gone to [facility] for ATS, completed on 11/13/22. Pt reports he maintained recovery up until 2 weeks ago. Pt has been drinking 1/2 handle alcohol since then. Pt reports he had been doing well with therapy, psychiatry, and taking medications as prescribed. Pt attributes return to alcohol use to stress of moving out and gaining independence. Pt states I'm feeling better than I was last time, I don't think I need detox. Pt plans to call therapist this afternoon and speak with her regarding recent events and hospital visit. Pt provided with t/w contact information if needed. Denies questions or concerns at this time. Provider aware pt requesting dc.
--- NOTE | 2023-01-11 13:04 | PC.NURSE ---
PT WAS UNABLE TO FIND HIS WALLET, THE BELONGINGS LIST DID NOT MENTION A WALLET, HE STATES HE WAS UNSURE WHEN HE HAD IT LAST
== END 2023-01-11 13:04 | disposition home or self-care (01) ==
PROVIDERS: Emergency Provider Emergency Medicine
DX: F10.229 Alcohol dependence with intoxication, unspecified (principal); Y90.8 Blood alcohol level of 240 mg/100 ml or more; R00.0 Tachycardia, unspecified; Z79.899 Other long term (current) drug therapy; Z71.41 Alcohol abuse counseling and surveillance of alcoholic
CPT/HCPCS: 36415; 80048; 80076; 80307; 81003; 82077; 83735; 84484; 85025; 93005; 96361; 96374; 96375; 99285; J2060; J2405

== ENCOUNTER 2023-06-14 12:11 | Outpatient (REF) | payer OTHER, SELFPAY ==
[2023-06-14 13:17] LABS: MANUAL DIFF FLAG NO
[2023-06-14 13:42] LABS: Basophils Absolute Auto 0.1 X10*3/uL (0.0-0.2); Basophils Percent Auto 0.8 % (0-2); Eosinophils Absolute Auto 0.1 X10*3/uL (0.0-0.4); Eosinophils Percent Auto 1.3 % (0-4); Hematocrit 41.4 % (42.0-52.0); Imm Gran Abs Auto 0.04 X10*3/uL (0.00-0.03); Imm Gran Pct Auto 0.6 % (0.0-0.4); Lymphocytes Absolute Auto 1.9 X10*3/uL (1.2-4.9); Lymphocytes Percent Auto 29.7 % (20-40); Mean Corpuscular HGB Conc 33.8 g/dl (31.0-36.0); Mean Corpuscular Hemoglobin 27.9 pg (27.0-33.0); Mean Corpuscular Volume 82.5 fL (80.0-98.0); Mean Platelet Volume 11.3 fL (9.4-12.4); Monocytes Absolute Auto 0.5 X10*3/uL (0.1-1.2); Monocytes Percent Auto 7.8 % (2-11); Neutrophils Absolute Auto 3.8 x10*3/uL (2.0-8.3); Neutrophils Percent Auto 59.8 % (45-73); Platelet Count 185 X10*3/uL (160-400); Red Blood Count 5.02 X10*6/uL (4.60-5.80); Red Cell Distribution Width 12.9 % (11.0-16.0); White Blood Count 6.3 X10*3/uL (4.8-10.8)
[2023-06-14 14:15] LABS: Alanine Aminotransferase 24 U/L (0-40); Albumin Level 4.4 g/dL (3.5-5.0); Alkaline Phosphatase 47 U/L (39-117); Anion Gap 13 (12-20); Aspartate Amino Transferase 28 U/L (5-37); Bilirubin Total 0.3 mg/dL (0.0-1.0); Blood Urea Nitrogen 14 mg/dL (9-16); Calcium 10.1 mg/dL (8.4-10.2); Carbon Dioxide 26 mmol/L (22-29); Chloride 105 mmol/L (96-108); Estimated Glomerular Filt Rate > 60; Glucose Random 113 mg/dL (60-115); Potassium 4.4 mmol/L (3.3-5.1); Sodium 140 mmol/L (135-145); Total Protein 7.3 g/dL (6.5-8.0)
[2023-06-14 14:29] LABS: Thyroid Stimulating Hormone 1.54 uIU/mL (0.32-4.0)
== END 2023-06-14 12:12 | disposition home or self-care (01) ==
LOC: HO.10HDL 12:11
PROVIDERS: Visit Provider Internal Medicine
DX: F10.11 Alcohol abuse, in remission (principal); F32.2 Major depressive disorder, single episode, severe without psychotic features; I82.622 Acute embolism and thrombosis of deep veins of left upper extremity; K70.10 Alcoholic hepatitis without ascites
CPT/HCPCS: 36415; 80053; 84443; 85025

== ENCOUNTER → 2024-01-06 13:01 | Outpatient (REF) | payer OTHER, SELFPAY ==
--- NOTE | 2024-01-06 13:05 | CA_ITS ---
Transthoracic Echocardiogram Patient (Last, First, Middle): Tanner Gomez, Gender: Male Date of : 1990 Age: 33 Procedure Date: 01/06/2024 Procedure Type: Transthoracic Echocardiogram Location: OP Height: 172.72 cm Weight: 125.65 kg BSA: 2.35 m2 Heart Rate: 109 bpm BP: 110 / 85 mmHg Fisheries Technical Officer: CELIA Blankenship MD: Marie Garvin MD Upholstery Technician: Shin Dodge MD Symptoms: TACHYCARDIA, F32.5 H/O ETOH ABUSE F10.11 R/O CARDIOMYOPATHY Study Quality: Fair ECG Rhythm: Sinus tachycardia Conclusions: - 1. Low normal LV ejection fraction 50-55% with impaired relaxation filling pattern 2. Reduced RV systolic function 3. Normal cardiac valvular Doppler 4. Normal RV systolic pressure 5. No gross pericardial effusion Findings Left Ventricle Normal left ventricular cavity size. There is normal left ventricular wall thickness. The left ventricular systolic function is low normal. The visually estimated ejection fraction is between 50-55%. Spectral Doppler is indicative of an impaired relaxation filling pattern. Peak GLS measurement appear to be erroneous. Right Ventricle Normal right ventricular cavity size. There is mildly decreased right ventricular systolic function. Atria Both atria are normal in size. Interatrial shunt cannot be excluded. Aortic Valve Normal aortic valve structure and function. There is no aortic valve stenosis. There is no aortic valve regurgitation. Mitral Valve Normal mitral valve structure and function. There is trace mitral valve regurgitation. There is no mitral valve stenosis. Pulmonic Valve The pulmonic valve was not well visualized. Tricuspid Valve Likely normal tricuspid valve structure and function. There is trace tricuspid valve regurgitation. The right ventricular systolic pressure is normal. The right ventricular systolic pressure is 12 mmHg. Normal right atrial pressure. There is no evidence of pulmonary hypertension. Great Vessels All visible segments of the aorta are normal in size. The pulmonary artery was not well visualized. Venous The inferior vena cava is normal in size and collapses greater than 50% with inspiration. Pericardium/Pleural There is no evidence of pericardial effusion. Measurements 2D Linear Measurements IVSd: 1.40 0.6-0.9/0.6-1.0 cm LVIDd: 4.16 3.9-5.3/4.2-5.9 cm LVIDd Index: 1.77 2.4-3.2/2.2-3.1 cm/m2 LVIDs: 2.00 2.0-3.6 cm LVPWd: 1.14 0.7-1.1 cm LA Diam: 3.50 2.7-3.8/3.0-4.0 cm LAIDs Index: 1.49 1.5-2.3 cm/m2 LV Mass: 237.92 67-162/88-224 g LV Mass Index: 101.24 43-95/49-115 g/m2 LVOT Diam: 2.30 3.0+(-)1.3 cm 2D Systolic Function EF 4C: 49.90 >55% EF 2C: 49.00 >55% EF BiP: 50.30 >55% Mitral Valve MV Pk E: 0.54 E'Lateral: 8.27 E'Medial: 5.55 E/E' Med: 9.70 E/E' Lat: 6.50 Aortic Valve AoV Pk Nicholas: 1.00 AoV Mn Nicholas: 0.74 AoV VTI: 0.16 AoV Pk Grad: 4.00 Aov Mn Grad: 2.00 RUSS Cont.VTI: 3.36 LVOT LVOT Pk Nicholas: 0.80 LVOT Mn Nicholas: 0.61 LVOT VTI: 0.13 LVOT Pk Grad: 3.00 LVOT Mn Grad: 2.00 LVOT Diam: 2.30 LVOT Area: 4.15 Diastolic Function MV Pk E: 0.54 E'Medial: 5.55 E/E' Med: 9.70 E' Laterial: 8.27 E/E' Lat: 6.50 Right Ventricle TAPSE (mm): 15.20 TVS' Nicholas: 13.80 Tricuspid Valve TR Pk Nicholas: 1.54 TR Pk Grad: 9.00 RA Press: 3.00 RVSP: 12.00 Great Vessels Aorta Sinus of Valsalva: 3.90 2.0-3.5 cm Ao Asc: 3.30 2.1-3.4 cm Pulmonary Valve PV Pk Nicholas: 0.83 Peak PV Grad: 3.00 Updated in Other Vendor System with Status of Final Shin Dodge MD electronically signed on 01/07/2024 4:15:52 PM with status of Final
== END ==
LOC: HO.CARD 13:01
PROVIDERS: PCP Internal Medicine; Visit Provider Internal Medicine
DX: F10.11 Alcohol abuse, in remission (principal)
CPT/HCPCS: 93306

== ENCOUNTER → 2024-01-06 13:05 | Outpatient (BNV) | payer OTHER, SELFPAY | PROVIDERS: PCP Internal Medicine; Visit Provider Internal Medicine Cardiovascular Disease | DX: R00.0 Tachycardia, unspecified (principal); I51.9 Heart disease, unspecified | CPT/HCPCS: 93306 ==

== ENCOUNTER 2024-07-12 09:29 | Outpatient (REF) | payer OTHER, SELFPAY ==
[2024-07-12 10:59] LABS: Alanine Aminotransferase 27 U/L (0-40); Alkaline Phosphatase 60 U/L (39-117); Anion Gap 12 (12-20); Aspartate Amino Transferase 24 U/L (5-37); Bilirubin Total 0.2 mg/dL (0.0-1.0); Blood Urea Nitrogen 10 mg/dL (9-16); Calcium 9.7 mg/dL (8.4-10.2); Carbon Dioxide 24 mmol/L (22-29); Chloride 111 mmol/L (96-108); Estimated Glomerular Filt Rate 54; Glucose Random 100 mg/dL (60-115); Sodium 143 mmol/L (135-145)
[2024-07-12 11:21] LABS: TSH reflex Free T4 2.29 uIU/mL (0.32-4.0)
== END 2024-07-12 09:30 | disposition home or self-care (01) ==
LOC: HO.10HDL 09:29
PROVIDERS: Visit Provider Internal Medicine
DX: F10.11 Alcohol abuse, in remission (principal); F32.5 Major depressive disorder, single episode, in full remission; I10 Essential (primary) hypertension; I47.19 Other supraventricular tachycardia
CPT/HCPCS: 36415; 80053; 84443

== ENCOUNTER 2025-01-15 09:09 | Outpatient (REF) | payer OTHER, SELFPAY ==
[2025-01-15 11:08] LABS: Creatinine Urine 468.31 mg/dL; Microalbum/Creatinine Ratio Ur 3.6 ug/mg cr (<30); Protein/Creatinine Ratio, Ur 0.03 (<0.2); Total Protein Urine Random 16 mg/dL (<12)
[2025-01-15 12:07] LABS: Alanine Aminotransferase 23 U/L (0-40); Albumin Level 4.2 g/dL (3.5-5.0); Alkaline Phosphatase 59 U/L (39-117); Anion Gap 11 (12-20); Aspartate Amino Transferase 32 U/L (5-37); Bilirubin Total 0.4 mg/dL (0.0-1.0); Blood Urea Nitrogen 17 mg/dL (9-16); Calcium 9.1 mg/dL (8.4-10.2); Carbon Dioxide 23 mmol/L (22-29); Chloride 111 mmol/L (96-108); Estimated Glomerular Filt Rate > 60; Glucose Random 93 mg/dL (60-115); Potassium 3.8 mmol/L (3.3-5.1); Sodium 141 mmol/L (135-145); Total Protein 7.3 g/dL (6.5-8.0)
== END 2025-01-15 09:10 | disposition home or self-care (01) ==
LOC: HO.10HDL 09:09
PROVIDERS: Visit Provider Internal Medicine
DX: Z00.00 Encounter for general adult medical examination without abnormal findings (principal); E66.01 Morbid (severe) obesity due to excess calories; F10.11 Alcohol abuse, in remission; N18.9 Chronic kidney disease, unspecified; G44.209 Tension-type headache, unspecified, not intractable
CPT/HCPCS: 36415; 80053; 82043; 82570; 84156

== ENCOUNTER → 2025-07-03 12:51 | Outpatient (BNVA) | payer SELFPAY | PROVIDERS: PCP Internal Medicine | DX: R76.11 Nonspecific reaction to tuberculin skin test without active tuberculosis (principal) ==

== ENCOUNTER 2025-10-15 09:56 | Emergency (ER) | payer OTHER, SELFPAY ==
--- NOTE | 2025-10-15 | ECG_ITS ---
Test Reason : check qt Blood Pressure : */* mmHG Vent. Rate : 97 BPM Atrial Rate : 97 BPM P-R Int : 160 ms QRS Dur : 84 ms QT Int : 348 ms P-R-T Axes : 39 11 16 degrees QTcB Int : 441 ms Normal sinus rhythm Normal ECG When compared with ECG of 10-Jan-2023 21:20, No significant change was found Referred By: Generic ED Physician Electronically Signed By: Brock Beltran
[2025-10-15 10:05] VITALS: BP 120/74; PULSE 100; O2SAT 98
[2025-10-15 10:22] VITALS: BP 113/76; PULSE 96; RESP 16; TEMP 36.4; O2SAT 98; BMI 42.6
--- NOTE | 2025-10-15 11:12 | ED_ITS ---
HPI - General Adult General Chief complaint: General Medical Stated complaint: INCR LETHARGY PER EMS Time Seen by Provider: 10/15/25 11:06 Source: patient, EMS, RN notes reviewed and old records reviewed Mode of arrival: EMS History of Present Illness ED Provider: [facility] narrative: Patient is a 35-year-old male with history of alcohol use disorder with alcohol withdrawal seizures in the past, asthma presenting to the emergency department via EMS after being found minimally responsive at work. Patient admits to recent depression and daily alcohol use. He denies any drug use. He denies suicidal or homicidal ideation, auditory or visual hallucinations. He denies any current physical complaints. He states that he is not interested in detox. He denies recent falls. MD complaint: alcohol intoxication Related Data Home Medications ?Medication ?Instructions ?Recorded ?Confirmed fluoxetine 40 mg capsule 40 mg PO DAILY 10/15/2510/01 metoprolol succinate 50 mg 50 mg PO DAILY 10/15/25 tablet,extended release 24 hr quetiapine 50 mg tablet 100 mg PO QPM 10/15/2510/15 topiramate 100 mg capsule 100 mg PO BEDTIME 10/15/25 1 12/16/24 sprinkle,extended release 24 hr topiramate 50 mg capsule 50 mg PO BID 10/15/25 sprinkle,extended release 24 hr Allergies Allergy/AdvReac Type Severity Reaction Status Date / Time No Known Allergies (No Known Allergy Verified 10/15/25 10:25 Allergies*) Review of Systems 2 Review of Systems: As per HPI Yes all other systems are reviewed and are negative Constitutional: Constitutional: Reports as per HPI [facility] Past Medical History Medical History (Updated 10/15/25 @ 15:37 by Berna Feng NP) Alcohol use disorder, severe, dependence Seizure Asthma Social History Social History Household Members: Family Household Members Other:: mother and step father Housing: House Do you presently have visiting nurse or other home services: No Alcohol intake: current Alcohol intake frequency: 3 or more drinks per day Alcohol type: hard liquor Comment: [facility] [place] Patient Tobacco Use Status: Never used Tobacco Substance Use Type: Marijuana Advance Directives: No Advance Directives Information Provided: No service: No Current occupational status: employed Physical Exam ED Vital Signs: Vital Signs - 24 hr 10/15/25 10:22 10/15/25 14:55 10/15/25 21:35 Temperature 97.5 F 97.8 F 98.2 F Pulse Rate 96 104 H 115 H Respiratory Rate 16 16 Blood Pressure 113/76 128/83 141/86 H Pulse Oximetry 98 96 96 Oxygen Delivery Method Room Air Room Air 10/15/25 23:56 Temperature 98.0 F Pulse Rate 96 Respiratory Rate 18 Blood Pressure 141/90 H Pulse Oximetry 96 Oxygen Delivery Method Room Air BMI result Body Mass Index 42.6 Vital signs have been reviewed and appear to be correct. Blood pressure normal. Heart rate normal. Respiratory rate normal. Temperature normal. Oxygen saturation normal. Const General: cooperative, healthy appearing and no acute distress Orientation/consciousness: oriented to person, oriented to place, oriented to time and patient oriented x3 Limitations: no limitations HENMT Head: Yes normocephalic and Yes atraumatic Ears: external ears normal General nose exam: Normal external nose present Face and sinus: Yes face symmetric Mouth: oropharynx normal and moist mucous membranes Throat: Yes uvula midline Eyes Pupils: Equal, round and reactive pupils present Neck Neck: Yes normal visual inspection and Yes supple Resp Effort & Inspection: normal respiratory effort and able to speak in complete sentences Auscultation: clear to auscultation bilaterally Cardio Rate: regular rate Rhythm: regular rhythm Heart sounds: S1 normal heart sound present and S2 normal heart sound present GI Palpation (GI): Soft to palpation and nontender Auscultation: normoactive bowel sounds General: Yes no CVA tenderness Back/Spine/Pelvis Back: no CVA tenderness Skin General skin exam: elasticity normal and turgor normal Neuro General: oriented to person, oriented to place, oriented to time, patient oriented x3, moves all extremities, no focal motor deficits and CN's II-XI intact bilaterally Cranial nerves: Yes Equal, round and reactive pupils present Cognition (Neuro): normal cognition Extrem General: Yes full ROM, Yes no pedal edema and Yes no calf tenderness Psych Appearance: grossly normal Mental Status: mental status grossly normal Speech and movement: Normal speech and movement present Affect: normal affect Thought process: Normal thought process present Course Reevaluation(s) Reevaluation #1: Kitty: The patient is a 35-year-old male who presents to the emergency room by ambulance. I believe he was brought here primarily because of significant intoxication. His alcohol level was 388. He was kept in the emergency room for several hours and ultimately was evaluated by the care team. He has no suicidal or homicidal ideation. He would like to be discharged. the patient has been somewhat tachycardic and hypertensive. Repeat vital signs showed a blood pressure of 141/90 with a heart rate of 96. He is referred to his primary care doctor. He is also referred to the [facility]. Additionally the care team for a possible therapist. He should return to the emergency room if worse Time: 00:07 Medical Decision Making Medical Decision Making [facility] Narrative: Patient is a 35-year-old male with history of alcohol use disorder with alcohol withdrawal seizures in the past, asthma presenting to the emergency department via EMS after being found minimally responsive at work. On exam patient is awake, A+Ox3, VS WNL, afebrile, normal neurological exam without focal deficits, physical exam findings as above. Given reported symptoms and physical exam findings, initial differential includes but is not limited to alcohol or drug intoxication or withdrawal, electrolyte abnormality, dehydration. Labs notable for ethanol of 388, mildly elevated transaminases. Patient continues to decline any assistance with treatment or detox facility placement. He is requesting discharge home. Discussed with patient that he is unable to be discharged at this time as he is intoxicated. Discussed with patient that if he can be picked up by a responsible adult who will supervise him until he is clinically sober he can be discharged but he is unable to leave on his own. Patient states that the only person who could get him is his mother but he is unwilling to call her to pick him up. Discussed with patient that he will remain in the ED until he is clinically sober. Differential Diagnosis Differential Diagnoses: The differential diagnosis associated with the presentation includes As per [facility] Admission/Observation Consideration of admission/observation: Escalation of care including admission/observation considered Lab Data [facility] Lab Attestation statement: I reviewed the patient's lab results. as per [facility] 10/15/25 12:39 10/15/25 12:39 Labs: Lab Results 10/15/25 10/15/25 Range/Units 12:39 18:30 WBC 4.2 L (4.8-10.8) X10*3/uL RBC 5.41 (4.60-5.80) X10*6/uL Hgb 15.7 (14.0-18.0) g/dl Hct 46.3 (42.0-52.0) % MCV 85.6 (80.0-98.0) fL MCH 29.0 (27.0-33.0) pg MCHC 33.9 (31.0-36.0) g/dl RDW 13.9 (11.0-16.0) % Plt Count 200 (160-400) X10*3/uL MPV 10.0 (9.4-12.4) fL Immature Gran % (Auto) 0.2 (0.0-0.4) % Neut % (Auto) 58.6 (45-73) % Lymph % (Auto) 36.2 (20-40) % [place] % (Auto) 3.1 (2-11) % Eos % (Auto) 0.5 (0-4) % Baso % (Auto) 1.4 (0-2) % Lymph # (Auto) 1.5 (1.2-4.9) X10*3/uL [place] # (Auto) 0.1 (0.1-1.2) X10*3/uL Eos # (Auto) 0.0 (0.0-0.4) X10*3/uL Baso # (Auto) 0.1 (0.0-0.2) X10*3/uL Abs Immat Gran (auto) 0.01 (0.00-0.03) X10*3/uL Absolute Neuts (auto) 2.5 (2.0-8.3) x10*3/uL Absolute Nucleated RBC 0.000 (0.0-0.012) X10*3/uL Nucleated RBC % (auto) 0.0 (0.0-0.2) /100WBC Sodium 146 H (135-145) mmol/L Potassium 3.8 (3.3-5.1) mmol/L Chloride 116 H (96-108) mmol/L Carbon Dioxide 22 (22-29) mmol/L Anion Gap 12 (12-20) BUN 9 (9-16) mg/dL Creatinine 1.17 (0.5-1.4) mg/dL Estim Creat Clear Calc 115.5 Estimated GFR > 60 Random Glucose 97 (60-115) mg/dL Calcium 8.6 (8.4-10.2) mg/dL Magnesium 2.3 (1.6-2.6) mg/dL Total Bilirubin 0.2 (0.0-1.0) mg/dL AST 65 H (5-37) U/L ALT 83 H (0-40) U/L Alkaline Phosphatase 73 (39-117) U/L Total Protein 6.7 (6.5-8.0) g/dL Albumin 4.4 (3.5-5.0) g/dL Urine Color Yellow Urine Appearance Turbid Urine pH 6.5 (5.0-9.0) Ur Specific [place] >= 1.030 H (1.005-1.025) Urine Protein Trace (Neg-Trace) mg/dL Urine Glucose (UA) Negative (Negative) mg/dL Urine Ketones Negative (Negative) mg/dL Urine Blood Negative (Negative) Urine Nitrite Negative (Negative) Ur Leukocyte Esterase Negative (Negative) Salicylates < 5.0 L (15-30) mg/dL Acetaminophen < 3 (<30) mcg/mL Ethyl Alcohol 388 H* mg/dL External Record Review External record reviewed: Inpatient record, Office record and Outpatient record Discharge Plan Discharge Clinical Impression: Alcohol intoxication Patient Disposition: Home, Self-Care Instructions: Alcohol Intoxication (DC), Abuse of Alcohol (DC), Alcohol Withdrawal (DC) Additional Instructions: Please do your best to try to minimize alcohol use. The care team counselor is making a referral for you to the [facility] to possibly try to help you get set up with a therapist. In addition to this I would recommend following up with your primary care doctor to discuss how things are going. Another possible resource for any issues related to alcohol is the [facility] [place] here at [facility]. Please see the contact information below. Alcohol use disorder You were seen in the Emergency Department today for treatment of alcohol use disorder.? You may have been given medications to help with your withdrawal symptoms.? Please do not drink alcohol with them. This is very dangerous and can cause respiratory depression or other adverse reactions depending on the medication. If you would like to cut down or stop your alcohol use please consider calling our outpatient Addiction Treatment office:? [facility] ([id number]) [address] [place] [address] You have also been given a list of treatment providers in the area that can assist as well.? If you experience seizures, vomiting blood, black stools, falls, severe headache, chest pain, fevers, trouble breathing, hallucinations or any other concerns you need to call 911 or seek immediate care. Please stay hydrated. Prescriptions: No Action fluoxetine 40 mg capsule 40 mg PO DAILY metoprolol succinate 50 mg tablet extended release 24 hr 50 mg PO DAILY quetiapine 50 mg tablet 100 mg PO QPM topiramate 50 mg capsule,sprinkle,ER 24hr 50 mg PO BID topiramate 100 mg capsule,sprinkle,ER 24hr 100 mg PO BEDTIME Referrals: [facility] [Provider Group] [facility] [Provider Group] Marie Garvin MD [Primary Care Provider, Internal Medicine] Interventions: ED Discharge Assessment Last Done: 10/15/25 23:56 Print Language: Hungarian
--- NOTE | 2025-10-15 11:52 | PC.NURSE ---
patient changed over into hospital attire w/ tech/security. belongings placed in [facility] shelf 2. refused lab work. meeting with care team at this time. remains calm/cooperative.
--- NOTE | 2025-10-15 12:33 | MHC.CARE ---
T/W attempted to meet with Pt at bedside. Pt appears intoxicated and cannot articulate if and what he drank today. Pt is refusing labs and is informed he cannot be assessed by the CARE team until a BAL is assessed. Pt is encouraged to provide blood work and agrees.
[2025-10-15 12:45] LABS: MANUAL DIFF FLAG NO
[2025-10-15 12:48] LABS: Hematocrit 46.3 % (42.0-52.0); Hemoglobin 15.7 g/dl (14.0-18.0); Imm Gran Abs Auto 0.01 X10*3/uL (0.00-0.03); Imm Gran Pct Auto 0.2 % (0.0-0.4); Lymphocytes Absolute Auto 1.5 X10*3/uL (1.2-4.9); Mean Corpuscular HGB Conc 33.9 g/dl (31.0-36.0); Mean Corpuscular Hemoglobin 29.0 pg (27.0-33.0); Mean Corpuscular Volume 85.6 fL (80.0-98.0); NRBC Abs Auto 0.000 X10*3/uL (0.0-0.012); NRBC Pct Auto 0.0 /100WBC (0.0-0.2); Platelet Count 200 X10*3/uL (160-400); Red Blood Count 5.41 X10*6/uL (4.60-5.80); White Blood Count 4.2 X10*3/uL (4.8-10.8)
[2025-10-15 13:01] LABS: Alanine Aminotransferase 83 U/L (0-40); Albumin Level 4.4 g/dL (3.5-5.0); Alkaline Phosphatase 73 U/L (39-117); Anion Gap 12 (12-20); Aspartate Amino Transferase 65 U/L (5-37); Blood Urea Nitrogen 9 mg/dL (9-16); Calcium 8.6 mg/dL (8.4-10.2); Carbon Dioxide 22 mmol/L (22-29); Chloride 116 mmol/L (96-108); Creatinine Clr Calc Pharmacy 115.5; Estimated Glomerular Filt Rate > 60; Magnesium 2.3 mg/dL (1.6-2.6); Potassium 3.8 mmol/L (3.3-5.1); Sodium 146 mmol/L (135-145); Total Protein 6.7 g/dL (6.5-8.0)
[2025-10-15 13:02] LABS: Acetaminophen LAB < 3 mcg/mL (<30); Salicylate < 5.0 mg/dL (15-30)
[2025-10-15 14:55] VITALS: BP 128/83; PULSE 104; RESP 16; TEMP 36.6; O2SAT 96
--- NOTE | 2025-10-15 18:11 | PC.NURSE ---
Pt has remained calm and cooperative. He has spent most of the shift walking and pacing the unit. HE has remained reasonable and is aware of the plan to be re-evaluated
[2025-10-15 18:38] LABS: Appearance Urine Turbid; Glucose Urine UA Negative (Negative); PH 6.5 (5.0-9.0); Specific Gravity - Urine >= 1.030 (1.005-1.025)
[2025-10-15 21:35] VITALS: BP 141/86; PULSE 115; TEMP 36.8; O2SAT 96
[2025-10-15 23:56] VITALS: BP 141/90; PULSE 96; RESP 18; TEMP 36.7; O2SAT 96
== END 2025-10-16 00:09 | disposition home or self-care (01) ==
PROVIDERS: Registered Nurse Emergency; Emergency Provider Student in an Organized Health Care Education/Training Program; PCP Internal Medicine
DX: F10.220 Alcohol dependence with intoxication, uncomplicated (principal); Y90.8 Blood alcohol level of 240 mg/100 ml or more; Z79.899 Other long term (current) drug therapy
CPT/HCPCS: 36415; 80053; 80143; 80179; 80307; 81003; 83735; 85025; 93005; 99284; S9485

== ENCOUNTER → 2025-10-15 11:04 | Outpatient (BNV) | payer OTHER, SELFPAY | PROVIDERS: Emergency Provider Student in an Organized Health Care Education/Training Program; PCP Internal Medicine; Visit Provider Internal Medicine Cardiovascular Disease | DX: Z13.6 Encounter for screening for cardiovascular disorders (principal) | CPT/HCPCS: 93010 ==